=== PATIENT | female | born 1940 | race Caucasian/White ===

== ENCOUNTER 2016-07-05 15:05 | Inpatient (IN) ==
[2016-07-05] MEDS ORDERED: ALUM/MAG/SIMETH/LIDO VISC 1:1 30 ML BOTTLE PO STA (15:48)
[2016-07-05] MEDS ORDERED: ALUM/MAG/SIMETH/LIDO VISC 1:1 30 ML BOTTLE PO ONE (16:04)
[2016-07-05] MEDS ORDERED: ONDANSETRON ODT 4 MG TABLET PO STA (16:10)
[2016-07-05] MEDS ORDERED: ONDANSETRON ODT 4 MG TABLET PO ONE (16:10)
--- NOTE | 2016-07-05 16:21 | XRay Report ---
History: Pain under right ribs Date: 07/05/2016 Study: Chest x-ray PA and lateral Comparison exam: October 14, 2015 chest x-ray The cardiac silhouette is not enlarged. The mediastinal contours are stable. The pulmonary vasculature is not engorged. Neurostimulator leads overlie the mid thoracic spine level. There is no pleural effusion. There is a prominent cardiac fat pad. There are some scattered emphysematous changes. There is no acute pulmonary infiltrate. Surgical clips overlie either lung apex. There is suspected osteopenia and thoracic spondylosis. Impression: No acute cardiopulmonary process. Emphysematous changes within the lungs PROCEDURE INTERPRETED AT [facility] DEPARTMENT OF RADIOLOGY Final Report Signed by: Dr. Yuli Dinh
[2016-07-05 16:22] LABS: Basophils % 0.2 % (0.0-0.8); Eosinophils # 0.1 10*3/uL (0.0-0.87); Eosinophils % 1.1 % (0.00-10.9); Hematocrit 41.9 VOL% (35.7-47.0); Hemoglobin 13.6 GM/DL (12.0-16.0); Immature Granulocytes % 1.1 %; Immature Granulocytes Absolute 0.13 #; Lymphocytes # 2.5 10*3/uL (1.4-4.0); Mean Corpuscular HGB Conc 32.5 GM/DL (32-36); Mean Corpuscular Hemoglobin 30 PG (27-34); Mean Corpuscular Volume 92.1 FL (87-102); Mean Platelet Volume 10.3 FL (9.6-12.0); Monocytes % 8.4 % (1.7-12.7); Neutrophils # 8.2 10*3/uL (1.4-7.4); Neutrophils % 68.2 % (38.7-73.9); Platelet Count 200 T/CUMM (130-400); Red Blood Count 4.55 MC/CUMM (3.8-5.5); Red Cell Distribution Width 13.6 % (9.3-17.3)
--- NOTE | 2016-07-05 16:24 | XRay Report ---
Exam: XR abdomen 2V Date: 07/05/2016 3:46 PM Comparison: 03/02/2012 Indication: Right upper quadrant pain Technique:[Supine and erect abdomen] Findings: Nonobstructed bowel gas pattern with no free air. Interval cholecystectomy. Stable SCS with degenerative changes. Minimal dextroscoliosis of the spine. Impression: Nonobstructed bowel gas pattern with no free air. SCS with interval cholecystectomy. PROCEDURE INTERPRETED AT [facility] DEPARTMENT OF RADIOLOGY Final Report Signed by: Dr. Augusta Nelson
[2016-07-05 16:27] LABS: Apearance,Urine CLOUDY (Clear); Bacteria,Urine Many /HPF (Few); Bilirubin,Urine Negative (Negative); Blood, Urine Negative (Negative); Glucose,Urine (UA) Negative (Negative); Ketones,Urine Negative (Negative); Mucus,Urine Many /LPF (Occasional); Nitrite,Urine Negative (Negative); Protein,Urine Negative; RBC,Urine 35 /HPF (0-4); Squamous Epithelial Cell,Urine Few /HPF (0-10); Urine Color Yellow (Yellow); Urine Specific Gravity 1.026 (1.001-1.035); Urine Urobilinogen < 2.0 EU/DL (0.2-1.0); WBC,Urine 13 /HPF (0-6)
[2016-07-05] MEDS ORDERED: cefTRIAXone 1,000 MG in SODIUM CHLORIDE 0.9% 100 ML IV STA (16:31)
[2016-07-05] MEDS ORDERED: KETOROLAC 30 MG/1 ML VIAL IV STA (16:31)
[2016-07-05] MEDS ORDERED: cefTRIAXone 1,000 MG VIAL ONE (16:48)
[2016-07-05] MEDS ORDERED: SODIUM CHLORIDE 0.9% 100 ML IV ONE (16:48)
[2016-07-05] MEDS ORDERED: KETOROLAC 30 MG/1 ML VIAL ONE (16:48)
[2016-07-05 16:50] LABS: Albumin 3.5 G/DL (3.4-5.0); Bilirubin,Total 0.5 MG/DL (0.2-1.0); Calcium 8.9 MG/DL (8.5-10.1); Osmolality,Calculated 279.7 MOS/KG (273-304); Potassium 3.9 MMOL/L (3.5-5.1); Total Protein 6.7 G/DL (6.4-8.3)
[2016-07-05] MEDS ORDERED: SODIUM CHLORIDE 0.9% 500 ML IV STA (17:06)
[2016-07-05] MEDS ORDERED: ONDANSETRON 4 MG/2 ML VIAL IV STA (17:56)
[2016-07-05] MEDS ORDERED: MORPHINE 2 MG/1 ML SYRINGE IV STA (17:56)
[2016-07-05] MEDS ORDERED: MORPHINE 2 MG/1 ML SYRINGE ONE (18:02)
[2016-07-05] MEDS ORDERED: ONDANSETRON 4 MG/2 ML VIAL ONE (18:02)
--- NOTE | 2016-07-05 18:17 | Ultrasound Report ---
History: Right flank pain Date: 07/05/2016 Study: Renal ultrasound kidneys only Comparison exam: Abdominal CT April 16, 2016 Real-time ultrasound images are captured and archived. There is no hydronephrosis or abnormal perinephric fluid. The left kidney measures 10.4 x 5.0 x 3.8 cm; the right kidney measures 9.9 x 3.8 x 4.0 cm. There is no solid renal mass. There is a 2.5 cm simple cyst in the mid right kidney. Impression: Benign simple cyst mid right kidney. Otherwise negative exam PROCEDURE INTERPRETED AT [facility] DEPARTMENT OF RADIOLOGY Final Report Signed by: Dr. Yuli Dinh
--- NOTE | 2016-07-05 18:21 | Emergency Department Note ---
Fadumo Yusuf Hilary, am scribing for, and in the presence of, Luis Angel Dong M.D. 16:03. Letitia Yusuf Howard T, M.D., personally performed the services described in this documentation, ascribed by Claire Thorne in my presence, and it is both accurate and complete [id number] . Arrival - Arrival Chief Complaint: Abdominal / Flank Pain Stated Complaint: sharp pain under right rib ED Nursing Triage Note: SHARP PAIN RUQ THAT RADIATES TO HER BACK, ONSET THIS AM , PRIOR CHOLECYSTECTOMY Mode of Arrival: Ambulatory Limitations: No Limitations Source: Patient, RN Notes Reviewed Time Seen by Provider: 07/05/16 15:45 - History of Present Illness HPI Narrative: Pt is a 76 y/o female presenting to the NUC with abdominal pain which radiates to her back which onset this morning. Pt reports eating doesn't make the pain worse or better. Pt confirms right sided flank tenderness and RUQ tenderness but she denies, N/V/D, constipation, dysuria, or blood in urine or stool. Pt had a Cholecystectomy four years ago and states the pain is the same as then and reports she had this same pain in March. Pt has a PMHx of Hiatal hernia, esophageal stricture; redundant colon, GERD, and Diverticulitis. Pt has a PSHx of a Cholecystectomy and Appendectomy. No other complaints or problems stated in the NUC. Onset (ago): hour(s) Consistency: constant Allergies/Adverse Reactions: Allergies Allergy/AdvReac Type Severity Reaction Status Date / Time Penicillins Allergy Intermediate RASH Verified 07/05/16 15:26 Home Medications: Home Medications Medication Instructions Recorded Confirmed Type Estradiol Tab [Estrace Tab] 2 mg PO BEDTIME 10/17/14 04/19/16 History Aspirin [Ecotrin] 81 mg PO BEDTIME 10/18/14 04/19/16 History Cholecalciferol (Vitamin D3) 1,000 unit PO BEDTIME 10/26/15 04/19/16 History [Vitamin D3] HYDROcodone/ACETAMIN 10-325 [[place] 1 tablet PO TID 10/26/15 04/19/16 History 10-325] Lisinopril/Hydrochlorothiazide 1 each PO BEDTIME 10/26/15 04/19/16 History [Lisinopril-Hctz 10-12.5 mg Tab] Metoprolol Tartrate 25 mg PO BEDTIME 10/26/15 04/19/16 History Magnesium Oxide [Magnesium] 400 mg PO BEDTIME 03/07/16 04/19/16 History Omeprazole [Prilosec] 20 mg PO BEDTIME 03/07/16 04/18/16 History Dicyclomine Cap/Tab [Bentyl 10 mg PO QID 04/17/16 04/17/16 History Cap/Tab] HYDROcodone/ACETAMIN 5-325 [[place] 1 tablet PO Q6H PRN #10 tablet 07/05/16 Rx 5-325] Ondansetron Tab [Zofran Tab] 4 mg PO Q6H #20 tablet 07/05/16 Rx cephALEXin [Keflex] 500 mg PO Q12HR #14 capsule 07/05/16 Rx Review of System - Review of System 12 point system: reviewed and no additional remarkable complaints except as stated - Review of System Constitutional: Absent: fever Respiratory: Absent: respiratory distress Gastrointestinal: Present: abdominal pain. Absent: nausea, vomiting, diarrhea, constipation Genitourinary female: Absent: dysuria, hematuria Musculoskeletal: Present: back pain (Right flank ) Medical,Surgical,& Family Hx - Medical History Cardio: History of: Hypertension No history of: Aneurysm, [place] Neurology: History of: Migraine (No Longer has), Vertigo No history of: Seizures HEENT: History of: Eye Problem (Wears glasses; poor vision; Cataracts), Dental Problems (Upper Plate) No history of: Ear Problem Respiratory: History of: Bronchitis, Pneumonia (A long time ago; Hx Pneum Vac), Respiratory Problems (Pulmonary edema; No Flu Vac 2015) Gastrointestinal: History of: Diverticulitis/ Diverticulosis, GERD, Hemorrhoids , GI Problems (hiatal hernia, esophageal stricture; redundant colon) Musculoskeletal: History of: Back/Neck Problems (Chronic back pain - epideral steroid injections; Dr. Patel), Herniated Disk, Musculoskeletal Problems ( Arthritis) Hematology: No history of: Anemia, Blood Transfusion Reaction Other: No history of: Anesthesia Reactions, Cancer - Surgical History Cardiac Surgeries: Sugical HX of: Cardiac Catheterization (10 years - Dr. Elmore - Last visit 10/24/2015) HEENT Surgeries: Surgical HX of: Tonsilectomy & Adenoidectomy (Tonsils) Patient denies: Eye Surgery (03/12/[address] Shields; 04/09/16 Sched for Rt Cataract) Abdominal Surgeries: Surgical HX of: Abdominal Surgery, Appendectomy, Cholecystectomy, Colonoscopy, EGD Reproductive Surgeries: Surgical HX of;: Breast Surgery (LEFT lumpectomy), Gynecologic Surgery, Hysterectomy Patient denies;: Genitourinary Surgery Orthopedic Surgeries: Surgical HX of;: Orthopedic Surgery (Rt CTR; Rt RCR) - Family History Family History: Reports;: Family Heart Disease (Brothers x2;), Family Hypertension (Brothers x2; Sister x6; Mother; Father), Family Stroke (Mother, Father) Denies;: Family Cancer - Social History Smoking Status: Never smoker Exam Vital Signs: Vital Signs Temperature 97 F L 07/05/16 15:23 Pulse Rate 69 07/05/16 17:04 Respiratory Rate 18 07/05/16 17:04 Blood Pressure 185/73 07/05/16 17:04 O2 Sat by Pulse Oximetry 97 07/05/16 17:04 - General General appearance: alert, in no apparent distress - Head Head exam: Present: atraumatic, normocephalic - Eye Eye exam: Present: normal appearance, PERRL, EOMI - ENT ENT exam: Present: mucous membranes moist, TM's normal bilaterally. Absent: mucous membranes dry - Neck Neck exam: Present: full ROM, trachea midline. Absent: tenderness - Chest Chest inspection: Present: symmetric chest wall rise. Absent: tenderness - Respiratory Respiratory exam: Present: normal lung sounds bilaterally. Absent: respiratory distress - Cardiovascular Cardiovascular exam: Present: regular rate, normal rhythm, normal heart sounds. Absent: murmur, rubs, gallop - Abdominal Exam Abdominal exam: Present: soft, tenderness (Mild to moderate RUQ tenderness), normal bowel sounds. Absent: distention - Extremities Exam Extremities exam: Present: full ROM. Absent: tenderness - Back Exam Back exam: Present: full ROM. Absent: tenderness - Neurological Exam Neurological exam: Present: alert, oriented X3, CN II-XII intact. Absent: motor sensory deficit - Psychiatric Psychiatric exam: Present: normal affect, normal mood - Skin Skin exam: Present: warm, dry, intact, normal color. Absent: rash Course Course Narrative: Medical decision making: Patient symptoms are consistent with flank pain and evaluation suggests urinary tract infection without evidence of stone or pyelonephritis, she appears stable at this time and is comfortable going home on oral medicines however verbalizes understanding that if her symptoms worsen or if she cannot keep oral medicines down she needs to return for reevaluation. Results - Labs CBC & BMP: 07/05/16 16:12 07/05/16 16:12 Lab Results: I have reviewed the patients labs Labs: Laboratory Tests 07/05/16 07/05/16 16:12 16:12 WBC 12.0 RBC 4.55 Hgb 13.6 Hct 41.9 Lymph % (Auto) 21.0 L Neut # (Auto) 8.2 H [place] # (Auto) 1.0 H Urine Urobilinogen < 2.0 H Urine Leukocytes Large H Laboratory Tests 07/05/16 16:12 Creatinine 1.30 H Glucose 146 H Albumin/Globulin Ratio 1.0 L - Diagnostic Findings Procedure: Abdominal x-ray: report reviewed by me (Nonobstructed bowel gas pattern with no free air. SCS with intervl cholecystectomy), Chest x-ray: report reviewed by me (No acute cardiopulmonary process. Emphysematous changes within the lungs), Ultrasound: report reviewed by me (R renal cyst, no other acute findings ) Disposition Clinical Impression: UTI (urinary tract infection), Right flank pain Case discussed with: patient Disposition: Disch To Home/Self Care Condition: Stable Instructions: Urinary Tract Infection in Women (ED), Flank Pain (ED) Additional Instructions: Return for worsening symptoms or if you cannot keep medicines down. Otherwise follow-up with your primary care next week for reevaluation, repeat urinalysis, and to discuss right renal cyst seen on ultrasound. Prescriptions: HYDROcodone/ACETAMIN 5-325 [[place] 5-325] 1 tablet PO Q6H PRN #10 tablet PRN Reason: Pain Ondansetron Tab [Zofran Tab] 4 mg PO Q6H #20 tablet cephALEXin [Keflex] 500 mg PO Q12HR #14 capsule New Prescriptions: Rx's Medication Instructions Recorded HYDROcodone/ACETAMIN 5-325 [[place] 1 tablet PO Q6H PRN #10 tablet 07/05/16 5-325] Ondansetron Tab [Zofran Tab] 4 mg PO Q6H #20 tablet 07/05/16 cephALEXin [Keflex] 500 mg PO Q12HR #14 capsule 07/05/16 Time of Disposition: 18:06
--- NOTE | 2016-07-05 19:31 | Hospitalist History & Physical ---
Assessment and Plan (1) UTI (urinary tract infection) Status: Acute Assessment and plan: The patient has pyuria and symptoms of right flank pain consistent with urinary tract infection. The patient has been given Rocephin in the emergency room and will continue this with a daily dose. The patient will be started on Levaquin tonight and a daily dose will be given starting tomorrow. The patient will stay in the hospital for hydration and when fevers improved and the patient is tolerating oral medications she will be ready for discharge home and follow-up as outpatient. Current Visit: Yes Qualifiers: Urinary tract infection type: acute cystitis Hematuria presence: without hematuria Qualified Code(s): N30.00 - Acute cystitis without hematuria (2) Hypertension Status: Chronic Current Visit: Yes Qualifiers: Hypertension type: essential hypertension Qualified Code(s): I10 - Essential (primary) hypertension (3) Right flank pain Status: Acute Current Visit: Yes History of Present Illness Chief complaint: Right flank pain History of present illness: Ms. Pizarro is a 76 year old female who presents to the emergency room with right flank pain. The pain is mild to moderate, continuous, and worsening. The pain is associated with fever and diaphoresis. The patient's symptoms are similar to those which she had in March 2016 when she had urinary tract infection and urine culture revealed enterococcus. The patient has been at home in her usual state of health she began having mild diaphoresis several days ago this was followed by right flank pain. Her symptoms have not been associated with dysuria or hematuria or hematochezia. The patient denies palpitations or angina. Home Medications Medication Instructions Recorded Confirmed Type Estradiol Tab [Estrace Tab] 2 mg PO BEDTIME 10/17/14 04/19/16 History Aspirin [Ecotrin] 81 mg PO BEDTIME 10/18/14 04/19/16 History Cholecalciferol (Vitamin D3) 1,000 unit PO BEDTIME 10/26/15 04/19/16 History [Vitamin D3] HYDROcodone/ACETAMIN 10-325 [[place] 1 tablet PO TID 10/26/15 04/19/16 History 10-325] Lisinopril/Hydrochlorothiazide 1 each PO BEDTIME 10/26/15 04/19/16 History [Lisinopril-Hctz 10-12.5 mg Tab] Metoprolol Tartrate 25 mg PO BEDTIME 10/26/15 04/19/16 History Magnesium Oxide [Magnesium] 400 mg PO BEDTIME 03/07/16 04/19/16 History Omeprazole [Prilosec] 20 mg PO BEDTIME 03/07/16 04/18/16 History Dicyclomine Cap/Tab [Bentyl 10 mg PO QID 04/17/16 04/17/16 History Cap/Tab] HYDROcodone/ACETAMIN 5-325 [[place] 1 tablet PO Q6H PRN #10 tablet 07/05/16 Rx 5-325] Ondansetron Tab [Zofran Tab] 4 mg PO Q6H #20 tablet 07/05/16 Rx cephALEXin [Keflex] 500 mg PO Q12HR #14 capsule 07/05/16 Rx Allergies Allergy/AdvReac Type Severity Reaction Status Date / Time Penicillins Allergy Intermediate RASH Verified 07/05/16 15:26 Medical,Surgical,& Family Hx - Medical History Cardio: History of: Hypertension No history of: Aneurysm, [place] Neurology: History of: Migraine (No Longer has), Vertigo No history of: Seizures HEENT: History of: Eye Problem (Wears glasses; poor vision; Cataracts), Dental Problems (Upper Plate) No history of: Ear Problem Respiratory: History of: Bronchitis, Pneumonia (A long time ago; Hx Pneum Vac), Respiratory Problems (Pulmonary edema; No Flu Vac 2015) Gastrointestinal: History of: Diverticulitis/ Diverticulosis, GERD, Hemorrhoids , GI Problems (hiatal hernia, esophageal stricture; redundant colon) Musculoskeletal: History of: Back/Neck Problems (Chronic back pain - epideral steroid injections; Dr. Patel), Herniated Disk, Musculoskeletal Problems ( Arthritis) Hematology: No history of: Anemia, Blood Transfusion Reaction Other: No history of: Anesthesia Reactions, Cancer - Surgical History Cardiac Surgeries: Sugical HX of: Cardiac Catheterization (10 years - Dr. Elmore - Last visit 10/24/2015) HEENT Surgeries: Surgical HX of: Tonsilectomy & Adenoidectomy (Tonsils) Patient denies: Eye Surgery (03/12/[address] Shields; 04/09/16 Sched for Rt Cataract) Abdominal Surgeries: Surgical HX of: Abdominal Surgery, Appendectomy, Cholecystectomy, Colonoscopy, EGD Reproductive Surgeries: Surgical HX of;: Breast Surgery (LEFT lumpectomy), Gynecologic Surgery, Hysterectomy Patient denies;: Genitourinary Surgery Orthopedic Surgeries: Surgical HX of;: Orthopedic Surgery (Rt CTR; Rt RCR) - Family History Family History: Reports;: Family Heart Disease (Brothers x2;), Family Hypertension (Brothers x2; Sister x6; Mother; Father), Family Stroke (Mother, Father) Denies;: Family Cancer - Social History Smoking Status: Never smoker Marital Status: Lives With:: Alone Functional capacity: independent ambulation 12 point system: reviewed and no additional remarkable complaints except as stated Exam - Constitutional Exam: Constitutional System: Mild distress. No tremulousness. Patient refers to right flank as source of pain Head: Normocephalic, atraumatic. Ears, Nose and Throat System: No evidence of Otitis or Mastoiditis. No epistaxis or discharge Eyes System: Pupils equal, round, and reactive. Extraocular muscles intact. Neck: Supple, without adenopathy, No jugular venous distention. No thyromegaly , neck mass, or prior surgery apparent. Respiratory System: Chest clear to auscultation. Cardiovascular System: Heart with regular rate and rhythm. No murmur. GI System: Abdomen soft, nontender. Normo active bowel sounds present. Musculoskeletal System: limbs with no pedal edema. Full distal pulses. There is right CVA tenderness Neurological System: No discernable sensory deficit. No aphasia Psychiatric System: Conversation is rational Results - Labs CBC & BMP: 07/05/16 16:12 07/05/16 16:12 Lab Results: I have reviewed the past 24 hour labs Labs: Urinalysis reveals pyuria
[2016-07-05] MEDS ORDERED: ACETAMINOPHEN 325 MG TABLET PO PRN (19:55)
[2016-07-05] MEDS ORDERED: ONDANSETRON 4 MG/2 ML VIAL IV PRN (19:55)
[2016-07-05] MEDS ORDERED: PNEUMOCOCCAL VACCINE (13 VALENT) 0.5 ML SYRINGE IM ONE (20:31)
[2016-07-05] MEDS: ESTRADIOL 1 MG TABLET PO SCH (21:05)
[2016-07-05] MEDS: LISINOPRIL/HCTZ 10-12.5 MG TABLET PO SCH (21:06)
[2016-07-05] MEDS: SODIUM CHLORIDE 0.9% 1,000 ML IV SCH (21:06)
[2016-07-05] MEDS: ASPIRIN EC 81 MG TABLET PO SCH (21:06)
[2016-07-05] MEDS: DICYCLOMINE 10 MG CAPSULE PO SCH (21:06)
[2016-07-05] MEDS: ENOXAPARIN 40 MG/0.4 ML SYRINGE SUBCUT SCH (21:07)
[2016-07-05] MEDS: LEVOFLOXACIN INJ 500 MG in PREMIX 1 EACH IV SCH (21:07)
[2016-07-05] MEDS: METOPROLOL TARTRATE 25 MG TABLET PO SCH (21:07)
[2016-07-05] MEDS: CHOLECALCIFEROL 1,000 UNIT TABLET PO SCH (21:09)
[2016-07-06 04:23] LABS: Basophils % 0.1 % (0.0-0.8); Eosinophils # 0.1 10*3/uL (0.0-0.87); Eosinophils % 1.5 % (0.00-10.9); Hematocrit 34.7 VOL% (35.7-47.0); Hemoglobin 11.2 GM/DL (12.0-16.0); Immature Granulocytes % 0.7 %; Immature Granulocytes Absolute 0.05 #; Lymphocytes # 1.7 10*3/uL (1.4-4.0); Lymphocytes % 22.3 % (21.3-54.2); Mean Corpuscular HGB Conc 32.3 GM/DL (32-36); Mean Corpuscular Hemoglobin 30 PG (27-34); Mean Platelet Volume 11.1 FL (9.6-12.0); Monocytes # 0.7 10*3/uL (0.11-0.8); Monocytes % 9.3 % (1.7-12.7); Neutrophils % 66.1 % (38.7-73.9); Platelet Count 151 T/CUMM (130-400); Red Blood Count 3.77 MC/CUMM (3.8-5.5); Red Cell Distribution Width 13.5 % (9.3-17.3); White Blood Count 7.5 T/CUMM (4-12)
[2016-07-06 04:52] LABS: Calcium 8.1 MG/DL (8.5-10.1); Osmolality,Calculated 282.4 MOS/KG (273-304); Potassium 4.1 MMOL/L (3.5-5.1)
[2016-07-06] MEDS: SODIUM CHLORIDE 0.9% 1,000 ML IV SCH ×3 (06:29→21:52)
[2016-07-06] MEDS: MORPHINE 2 MG/1 ML SYRINGE IV PRN ×3 (06:54→12:18)
[2016-07-06] MEDS: PANTOPRAZOLE 40 MG TABLET PO SCH (08:16)
[2016-07-06] MEDS: DICYCLOMINE 10 MG CAPSULE PO SCH ×4 (08:16→21:53)
[2016-07-06] MEDS: cefTRIAXone 1,000 MG in SODIUM CHLORIDE 0.9% 100 ML IV SCH (08:17)
--- NOTE | 2016-07-06 15:54 | CT Report ---
History: Right flank pain. Nephrolithiasis suspected. Renal cysts by ultrasound Date: 07/06/2016 Study: CT abdomen without IV contrast Comparison exam: CT abdomen with IV contrast April 16, 2016 Technique: Spiral CT sections were obtained from the lung bases to the iliac crests without contrast. This CT exam was performed using one or more the following dose reduction techniques: Automated exposure control, adjustment of the MA and/or KV according to patient size, or use of iterative reconstruction technique. There is no marcus pneumonia in the partially visualized lung bases. There is no gross pleural or pericardial effusion. There is no evidence of pneumoperitoneum. There is no marcus bowel obstruction where seen. The gallbladder is surgically absent. The liver, spleen, pancreas, bile ducts, and adrenal glands are normal in appearance. There is a 2.4 cm water density cyst in the mid right kidney. There is a rounded exophytic water density cyst at the lower pole of the left kidney at 14 mm diameter as on the comparison CT. There is no hydronephrosis. There are at least 2 punctate calcific densities in the right renal sinus which could represent 1 mm calculi. There is no aortic aneurysm. There is no lymphadenopathy by short axis diameter criteria. A neurostimulator device is positioned with its power pack in the soft tissues of the dorsal right flank. There is degenerative disc disease of the lumbar spine. Impression: Particulate nonobstructing renal stones on the right. No hydronephrosis. Renal cysts. Previous cholecystectomy PROCEDURE INTERPRETED AT [facility] DEPARTMENT OF RADIOLOGY Final Report Signed by: Dr. Yuli Dinh
[2016-07-06] MEDS: LEVOFLOXACIN INJ 500 MG in PREMIX 1 EACH IV SCH (21:52)
[2016-07-06] MEDS: ASPIRIN EC 81 MG TABLET PO SCH (21:53)
[2016-07-06] MEDS: LISINOPRIL/HCTZ 10-12.5 MG TABLET PO SCH (21:53)
[2016-07-06] MEDS: ENOXAPARIN 40 MG/0.4 ML SYRINGE SUBCUT SCH (21:53)
[2016-07-06] MEDS: ESTRADIOL 1 MG TABLET PO SCH (21:53)
[2016-07-06] MEDS: CHOLECALCIFEROL 1,000 UNIT TABLET PO SCH (21:54)
[2016-07-06] MEDS: METOPROLOL TARTRATE 25 MG TABLET PO SCH (21:54)
[2016-07-07] MEDS: MORPHINE 2 MG/1 ML SYRINGE IV PRN ×4 (00:45→22:20)
[2016-07-07] MEDS: MELATONIN 3 MG TABLET PO PRN (00:46)
[2016-07-07] MEDS: SODIUM CHLORIDE 0.9% 1,000 ML IV SCH ×3 (07:24→23:40)
[2016-07-07] MEDS: PANTOPRAZOLE 40 MG TABLET PO SCH (08:16)
[2016-07-07] MEDS: DICYCLOMINE 10 MG CAPSULE PO SCH ×4 (08:16→20:49)
[2016-07-07] MEDS: cefTRIAXone 1,000 MG in SODIUM CHLORIDE 0.9% 100 ML IV SCH (08:17)
--- NOTE | 2016-07-07 11:20 | Hospitalist Progress Note ---
<Daniel Mckeon - Last Filed: 07/07/16 11:03> Assessment and Plan (1) Renal stones Status: Acute Assessment and plan: CT abdomen and pelvis on yesterday revealed non-obstructive renal stones on the right; no hydronephrosis, and renal cysts. Urology consult requested. Current Visit: Yes (2) Right flank pain Status: Acute Current Visit: Yes (3) UTI (urinary tract infection) Status: Acute Assessment and plan: Continue IV ABt as ordered; continue hydration. Current Visit: Yes Qualifiers: Urinary tract infection type: acute cystitis Hematuria presence: without hematuria Qualified Code(s): N30.00 - Acute cystitis without hematuria (4) Hypertension Status: Chronic Assessment and plan: Will manage and adjust as needed. Current Visit: Yes Qualifiers: Hypertension type: essential hypertension Qualified Code(s): I10 - Essential (primary) hypertension Hospitalist: Subjective Interval history: Patient seen and examined. No significant overnight events. CT abdomen and pelvis on yesterday revealed non-obstructive renal stones on the right; no hydronephrosis, and renal cysts. Urology consult requested. Exam - Constitutional Vitals: Period Temp Pulse Resp BP Sys/[place] Pulse Ox Last 24 Hr 97.1 F-98.1 F 62-71 12-20 137-160/56-76 94-98 General appearance: normal weight, no acute distress - Head Head exam: Present: normal inspection, normocephalic, atraumatic - Eye Eye exam: Present: EOMI. Absent: conjunctival injection Pupils: Present: TAM, normal accommodation - ENT ENT exam: Present: normal exam, normal external ear exam, normal oropharynx - Neck Neck exam: Absent: lymphadenopathy, meningismus, tenderness, thyromegaly - Respiratory Respiratory exam: Present: clear to auscultation bilaterally. Absent: rales, rhonchi, stridor, wheezes - Cardiovascular Cardiovascular exam: Present: regular rate and rhythm. Absent: carotid bruit, diastolic murmur, gallop, JVD, rubs, systolic murmur - GI/Abdominal GI/Abdominal exam: Present: normal bowel sounds, tenderness (flank pain r side) - Extremities Exam Extremities exam: Present: normal inspection, normal capillary refill, full ROM. Absent: edema - Back Exam Back exam: Present: normal inspection - Neurological Exam Neurological exam: Present: alert, oriented X3, CN II-XII intact - Psychiatric Psychiatric exam: Present: normal affect, normal mood - Skin Skin exam: Present: normal color, warm, dry Results - Labs CBC & BMP: 07/06/16 02:35 07/06/16 02:35 Lab Results: I have reviewed the past 24 hour labs Quality Measures - Stroke Symptom Onset Unknown: No Specialty Discharge - Follow Up or Referrals <Ulises Farias - Last Filed: 07/07/16 13:19> Assessment and Plan (1) UTI (urinary tract infection) Status: Acute Current Visit: Yes Qualifiers: Urinary tract infection type: acute cystitis Hematuria presence: without hematuria Qualified Code(s): N30.00 - Acute cystitis without hematuria (2) Right flank pain Status: Acute Current Visit: Yes (3) Hypertension Status: Chronic Current Visit: Yes Qualifiers: Hypertension type: essential hypertension Qualified Code(s): I10 - Essential (primary) hypertension Exam - Constitutional Vitals: Period Temp Pulse Resp BP Sys/[place] Pulse Ox Last 24 Hr 97.1 F-98.1 F 62-71 14-20 137-160/56-76 94-98 Results - Labs CBC & BMP: 07/06/16 02:35 07/06/16 02:35
--- NOTE | 2016-07-07 17:41 | Consultation ---
Ms. Pizarro is 76 years old. She was admitted two days ago because of severe right flank pain. Sujit resendez was found to have stones in her right kidney, but no obstructive uropathy. She was found to have a urinary tract infection and culture is pending. She had a similar episode in March and was greg miguelangel with antibiotics. She has no other history of urinary tract infection problems. No other histo ry of stone problems. The patient is still hurting in her right flank area. Pain radiate anterior to posterior in the right upper quadrant into the right flank. She has not had further migration pa in. The study could not be reviewed by me, but apparently does show a couple of stones and mild hydr onephrosis. The patient is feeling a little better, but still hurting. Final culture is pending. I think problem most likely suggest pyelonephritis even though she is not running any significant fe lilo. Low-grade temperature elevation only. She needs to be treated with appropriate antimicrobials and then placed on suppression with something like 50 mg Macrodantin daily or 100 mg trimethoprim d aily and I will keep her on that for six months. If she has any other problems, please consult Dr. Hernández or Dr. Gunn for further care. Thank you for this consultation.
[2016-07-07] MEDS: ESTRADIOL 1 MG TABLET PO SCH (20:49)
[2016-07-07] MEDS: ASPIRIN EC 81 MG TABLET PO SCH (20:49)
[2016-07-07] MEDS: ENOXAPARIN 40 MG/0.4 ML SYRINGE SUBCUT SCH (20:49)
[2016-07-07] MEDS: CHOLECALCIFEROL 1,000 UNIT TABLET PO SCH (20:49)
[2016-07-07] MEDS: LISINOPRIL/HCTZ 10-12.5 MG TABLET PO SCH (20:50)
[2016-07-07] MEDS: METOPROLOL TARTRATE 25 MG TABLET PO SCH (20:50)
[2016-07-08] MEDS: MELATONIN 3 MG TABLET PO PRN ×2 (00:05→20:50)
[2016-07-08] MEDS: MORPHINE 2 MG/1 ML SYRINGE IV PRN ×4 (04:56→21:35)
[2016-07-08 06:20] LABS: Basophils % 0.2 % (0.0-0.8); Eosinophils # 0.1 10*3/uL (0.0-0.87); Eosinophils % 1.9 % (0.00-10.9); Hematocrit 35.3 VOL% (35.7-47.0); Immature Granulocytes % 0.5 %; Immature Granulocytes Absolute 0.03 #; Lymphocytes # 1.6 10*3/uL (1.4-4.0); Lymphocytes % 28.2 % (21.3-54.2); Mean Corpuscular HGB Conc 31.2 GM/DL (32-36); Mean Corpuscular Hemoglobin 30 PG (27-34); Mean Corpuscular Volume 95.1 FL (87-102); Mean Platelet Volume 11.1 FL (9.6-12.0); Monocytes # 0.5 10*3/uL (0.11-0.8); Monocytes % 7.9 % (1.7-12.7); Neutrophils # 3.5 10*3/uL (1.4-7.4); Neutrophils % 61.3 % (38.7-73.9); Platelet Count 113 T/CUMM (130-400); Red Blood Count 3.71 MC/CUMM (3.8-5.5); Red Cell Distribution Width 13.8 % (9.3-17.3); White Blood Count 5.7 T/CUMM (4-12)
[2016-07-08 06:53] LABS: Albumin 2.6 G/DL (3.4-5.0); Bilirubin,Total 0.8 MG/DL (0.2-1.0); Calcium 7.7 MG/DL (8.5-10.1); Magnesium 1.6 MG/DL (1.8-2.4); Osmolality,Calculated 287.8 MOS/KG (273-304); Phosphorous 2.7 MG/DL (2.5-4.9); Total Protein 5.1 G/DL (6.4-8.3)
[2016-07-08] MEDS: SODIUM CHLORIDE 0.9% 1,000 ML IV SCH ×2 (09:33→15:57)
[2016-07-08] MEDS: DICYCLOMINE 10 MG CAPSULE PO SCH ×4 (09:35→20:50)
[2016-07-08] MEDS: PANTOPRAZOLE 40 MG TABLET PO SCH (09:35)
--- NOTE | 2016-07-08 13:21 | Ultrasound Report ---
Referring Physician: Ruth Baker MD Exam: US liver Date: July 08, 2016 Reason: Elevated liver function test Comparison: CT abdomen without contrast July 06, 2016, renal ultrasound July 05, 2016, CT abdomen and pelvis July 08, 2016 Technique: Grayscale ultrasound images of the right abdomen were obtained. Ultrasound images were captured and stored. Findings: The liver measures 14.6 cm in length. No suspicious hepatic lesion is identified. The patient is status post cholecystectomy. The common bile duct is mildly prominent, measuring 0.7 cm in diameter. This is stable and may be related to the cholecystectomy status. However, please correlate with bilirubin levels. The visualized pancreas is unremarkable. The right kidney measures 8.7 x 4.5 x 4.1 cm. No right hydronephrosis is present. There is a 2.7 x 1.7 x 1.5 cm exophytic cyst at the mid right kidney. The visualized IVC appears patent, no ascites is seen. Impression: 1. No suspicious hepatic lesion is identified. 2. The common bile duct is mildly prominent but stable, measuring 0.7 cm in diameter. This may be related to the cholecystectomy status, but please correlate with bilirubin levels. 3. Right renal cyst. PROCEDURE INTERPRETED AT [facility] DEPARTMENT OF RADIOLOGY Final Report Signed by: Dr. Kimberly Hartmann
--- NOTE | 2016-07-08 18:25 | Hospitalist Progress Note ---
Assessment and Plan (1) Elevated liver function tests Status: Acute Assessment and plan: Unclear etiology. liver U/S unremarkable. Will F/U repeat tests in the morning and obtain hepatitis screening. Will also place a c/s to GI as well. Current Visit: Yes (2) UTI (urinary tract infection) Status: Acute Assessment and plan: MRSA isolated on Ucx. Given the presence of a non-obstructing stone, patient will need prolonged abx until stone passage and/or removal occurs. Will start Bactrim (bacteriacidal) but would likely benefit from long-term suppression with Doxy (bacteriastatic) as it has less potential side effects. Current Visit: Yes Qualifiers: Urinary tract infection type: acute cystitis Hematuria presence: without hematuria Qualified Code(s): N30.00 - Acute cystitis without hematuria (3) Right flank pain Status: Acute Assessment and plan: Improved but still present. Pain meds prn. Current Visit: Yes (4) Hypertension Status: Chronic Current Visit: Yes Qualifiers: Hypertension type: essential hypertension Qualified Code(s): I10 - Essential (primary) hypertension (5) Renal stones Status: Acute Current Visit: Yes Hospitalist: Subjective Interval history: Patient seen and evaluted and continues to have RUQ pain that radiates around to the right shoulder blade. Intermittent sharp pain. No N/V. Soft stools. Discussed with Ms. Pizarro elevated liver test and potential etiologies. Liver u/s unremarkable. Of note, she's had a cholecystecomy at some point in the recent past. Currently on IVF's but can d/c with improvement in renal function. Oral intake adequate. Exam - Constitutional Vitals: Period Temp Pulse Resp BP Sys/[place] Pulse Ox Last 24 Hr 96.7 F-98.4 F 60-69 16-20 124-147/55-76 92-98 General appearance: morbidly obese - Head Head exam: Present: normal inspection, normocephalic, atraumatic - Eye Eye exam: Present: EOMI - Neck Neck exam: Present: normal inspection. Absent: lymphadenopathy - Respiratory Respiratory exam: Present: clear to auscultation bilaterally. Absent: rales, rhonchi, wheezes - Cardiovascular Cardiovascular exam: Present: regular rate and rhythm - GI/Abdominal GI/Abdominal exam: Present: normal bowel sounds, tenderness, soft. Absent: distended - Back Exam Back exam: Present: CVA tenderness (R) (mild) - Neurological Exam Neurological exam: Present: alert, oriented X3, CN II-XII intact - Psychiatric Psychiatric exam: Present: normal affect, normal mood - Skin Skin exam: Present: normal color, warm, dry Results - Labs CBC & BMP: 07/08/16 05:28 07/08/16 05:28 Quality Measures - Stroke Symptom Onset Unknown: No Specialty Discharge - Follow Up or Referrals
--- NOTE | 2016-07-08 18:52 | Urology Progress Note ---
Urology - PN: Subj Interval history: 76-year-old white female was admitted the hospital with abdominal pain. The working diagnosis is pyelonephritis but I disagree with that. This patient had a similar episode in March with right abdominal pain that traverses to behind her shoulder blade. She had a workup at that time with no findings. This returns. And to admit labeled as having pyelonephritis but I do not think so. Her white count is normal she has had no fever. She has a positive urine culture but if you critically think about this this urine is contaminated with vaginal contents. SGOT 10 to the fifth colonies of yeast and a small bacterial count which I think is can contaminant. Her examination is not consistent with pyelonephritis. Her intermittent pain is not consistent with pyelonephritis. Her signs and symptoms are not consistent with pyelonephritis. I simply do not believe she has pyelonephritis. I believe her pain and symptoms are related to the GI tract. I would focus my attention there. Exam - Constitutional Vitals: Period Temp Pulse Resp BP Sys/[place] Pulse Ox Last 24 Hr 96.7 F-98.4 F 60-69 16-20 124-147/55-76 92-98 Results - Labs CBC & BMP: 07/08/16 05:28 07/08/16 05:28 Specialty Discharge - Follow Up or Referrals
[2016-07-08 19:43] LABS: Hepatitis B Surface Ag Quant < 0.10 Index; Hepatitis B Surface Ag Result Negative (Negative)
[2016-07-08] MEDS: LISINOPRIL/HCTZ 10-12.5 MG TABLET PO SCH (20:50)
[2016-07-08] MEDS: ASPIRIN EC 81 MG TABLET PO SCH (20:50)
[2016-07-08] MEDS: SULFAMETHOX/TRIMETHOPRIM 800-160 MG TABLET PO SCH (20:50)
[2016-07-08] MEDS: ESTRADIOL 1 MG TABLET PO SCH (20:50)
[2016-07-08] MEDS: CHOLECALCIFEROL 1,000 UNIT TABLET PO SCH (20:51)
[2016-07-08] MEDS: METOPROLOL TARTRATE 25 MG TABLET PO SCH (20:51)
[2016-07-08] MEDS: ENOXAPARIN 40 MG/0.4 ML SYRINGE SUBCUT SCH (20:51)
[2016-07-08 21:07] LABS: Hepatitis A Ab IgM Quant 0.32 Index; Hepatitis A Ab IgM Result Negative (Negative); Hepatitis B Core Ab Result Negative (Negative)
[2016-07-09] MEDS: SODIUM CHLORIDE 0.9% 1,000 ML IV SCH ×3 (00:19→15:38)
[2016-07-09] MEDS: MORPHINE 2 MG/1 ML SYRINGE IV PRN ×4 (02:51→21:51)
[2016-07-09 06:29] LABS: Hepatitis A Ab IgM Quant 0.32 Index; Hepatitis A Ab IgM Result Negative (Negative); Hepatitis B Core IgM Quant 0.17 Index; Hepatitis B Core IgM Result Negative (Negative); Hepatitis B Surface Ag Quant < 0.10 Index; Hepatitis B Surface Ag Result Negative (Negative); Hepatitis C Virus Ab Quant 0.09 Index; Hepatitis C Virus Ab Result Negative (Negative)
[2016-07-09] MEDS ORDERED: FLUCONAZOLE 150 MG TABLET PO ONE (07:58)
[2016-07-09] MEDS: PANTOPRAZOLE 40 MG TABLET PO SCH (08:22)
[2016-07-09] MEDS: SULFAMETHOX/TRIMETHOPRIM 800-160 MG TABLET PO SCH ×2 (08:22→21:12)
[2016-07-09] MEDS: DICYCLOMINE 10 MG CAPSULE PO SCH ×4 (08:22→21:12)
--- NOTE | 2016-07-09 09:30 | Hospitalist Progress Note ---
Hospitalist: Subjective Interval history: No new complaints. No fever. No cp or SOB. right flank pain currently controlled. Tolerating po. +BM. Ambulating around in the room without assistance. Exam - Constitutional Vitals: Period Temp Pulse Resp BP Sys/Gax[place]ola Pulse Ox Last 24 Hr 96.7 F-98.6 F 63-92 16-20 120-153/40-76 92-96 Exam: A and O x 3, NAD, morbidly obese RRR no M CTAB nonlabored Soft, NT, ND, +BS difficult to assess for HSM or masses given body habitus Warm no c/c/e Results - Labs CBC & BMP: 07/08/16 05:28 07/08/16 05:28 - Impressions (1) Elevated liver function tests Status: Acute Assessment and plan: Unclear etiology. possibly related to acetaminophen. liver U/S unremarkable. Viral hepatitis panel pending. GI to see. ? HIDA scan but I wonder if this will be negative given she has no significant symptoms. DC [place] and tylenol. Tramadol trial. Current Visit: Yes (2) UTI (urinary tract infection)/ cystitis Status: Acute Assessment and plan: MRSA isolated on Ucx. Given the presence of a non-obstructing stone, patient will need prolonged abx until stone passage and/or removal occurs. Cont Bactrim (bactericidal) but would likely benefit from long-term suppression with Doxy ( bacteriastatic) as it has less potential side effects. D/W urology (Dr. Allison ). He does not feel this is pyelonephritis. Current Visit: Yes Qualifiers: Urinary tract infection type: acute cystitis Hematuria presence: without hematuria Qualified Code(s): N30.00 - Acute cystitis without hematuria (3) Right flank pain Status: Acute Assessment and plan: Improved but still present. Pain meds prn. GI to see. F/U recs. I wonder if this is referred pain from chronic lumbar radiculopathy. Current Visit: Yes (4) Hypertension Status: Chronic Current Visit: Yes Qualifiers: Hypertension type: essential hypertension Qualified Code(s): I10 - Essential (primary) hypertension - cont current therapy (5) Renal stones Status: Acute Current Visit: Yes -Stones are too small for intervention at this time. D/W Dr. Allison. DVT prophylaxis -Dispo: awaiting liver function to improve and GI recs. Possibly dc in the next day or so. Pt states she may be interested in HH at discharge. Quality Measures - Stroke Symptom Onset Unknown: No Specialty Discharge - Follow Up or Referrals
[2016-07-09 10:05] LABS: Albumin 2.7 G/DL (3.4-5.0); Bilirubin,Direct 0.3 MG/DL (0.0-0.20); Bilirubin,Indirect 0.2 MG/DL (0.0-1.0); Bilirubin,Total 0.5 MG/DL (0.2-1.0); Total Protein 5.1 G/DL (6.4-8.3)
--- NOTE | 2016-07-09 10:29 | Urology Progress Note ---
Urology - PN: Subj Interval history: Patient still has that right upper quadrant pain traversing to underneath her shoulder blade. Her liver enzymes are up. She is on Bactrim for the urinary findings. But I am not convinced she has a UTI. But we will continue the Bactrim. I did order Diflucan for her monilial vaginitis. Also ordered hepatitis profile, amylase and lipase. This just does not appear to be Pyelo and I do not feel her pain is urinary in origin. Exam - Constitutional Vitals: Period Temp Pulse Resp BP Sys/Gax[place]ola Pulse Ox Last 24 Hr 96.7 F-98.6 F 63-92 16-20 120-153/40-76 92-96 Results - Labs CBC & BMP: 07/08/16 05:28 07/08/16 05:28 Specialty Discharge - Follow Up or Referrals
[2016-07-09 10:49] LABS: Albumin 2.7 G/DL (3.4-5.0); Calcium 7.7 MG/DL (8.5-10.1); Magnesium 1.4 MG/DL (1.8-2.4); Phosphorous 2.5 MG/DL (2.5-4.9); Potassium 3.8 MMOL/L (3.5-5.1)
--- NOTE | 2016-07-09 11:25 | Gastrointestinal Consult Note ---
Assessment and Plan (1) Abdominal pain Status: Acute Assessment and plan: 07/09-several day history of right upper quadrant abdominal pain radiating to back and shoulder blades with prior history of cholecystectomy 5 years ago with no gallstones found at that time. Now with elevated LFTs. EGD 2 months ago with no acute findings. CT and ultrasound results noted. Hepatitis panel negative. Plan an addendum to follow by Dr. Ayon. Current Visit: Yes History of Present Illness Chief complaint: Abdominal pain History of present illness: Ms. Pizarro is a 76 year old female who was admitted to the hospital with onset of right flank pain. Patient states that she was in her usual state of health until last when she began to have pain in her right upper quadrant that radiated around to her back and shoulder blades. Patient states that the pain continued to worsen throughout the weekend and she was brought to the emergency room for further evaluation. Patient states that the pain seems to be worsened when she eats or drinks something. Not every time she eats or drinks does this occur however states when it does it is severe in nature. It is not associated with nausea or vomiting. She has had this pain in the past and states that it feels very similar to the pain she experienced prior to her cholecystectomy which was done in [address] Haas. She was found at that time to have acalculus cholecystitis with sludge. Surgical note at that time stated patient to have a tortuous cystic duct with initial delayed emptying into the duodenum however no obstructive stones seen at that time. Patient states that she was told several months ago that she had elevated liver enzymes at her follow-up appointment with her PCP. She states her Prilosec was stopped however later restarted by Dr. Ayon. She has had her LFTs rechecked since this time and they were normal range. On admission patient is noted to have had normal LFTs however on yesterday she had an increase with an AST of 182 and an ALT of 140 with normal alkaline phosphatase. Also noted to have normal bilirubin. Her last EGD was done in April of this year with findings of GERD , esophageal stricture with dilation. Recommendations at that time were noted for possible MRCP due to ongoing abdominal pain however patient has an implanted spinal cord stimulator and unable to have an MRI. Patient denies any melena or hematochezia. Denies any coffee-ground or hematemesis. Denies any recent weight loss fever or chills. She was noted on CT of abdomen on admission to have nonobstructing renal stones on the right side with no acute abdominal findings. Liver ultrasound shows no suspicious hepatic lesions, mildly dilated CBD, 0.7 cm, in lieu of postcholecystectomy. Home Medications Medication Instructions Recorded Confirmed Type Estradiol Tab [Estrace Tab] 2 mg PO BEDTIME 10/17/14 07/05/16 History Aspirin [Ecotrin] 81 mg PO BEDTIME 10/18/14 07/05/16 History Cholecalciferol (Vitamin D3) 1,000 unit PO BEDTIME 10/26/15 07/05/16 History [Vitamin D3] HYDROcodone/ACETAMIN 10-325 [[place] 1 tablet PO TID 10/26/15 07/05/16 History 10-325] Lisinopril/Hydrochlorothiazide 1 each PO BEDTIME 10/26/15 07/05/16 History [Lisinopril-Hctz 10-12.5 mg Tab] Metoprolol Tartrate 25 mg PO BEDTIME 10/26/15 07/05/16 History Magnesium Oxide [Magnesium] 400 mg PO BEDTIME 03/07/16 07/05/16 History Omeprazole [Prilosec] 20 mg PO BEDTIME 03/07/16 07/05/16 History Dicyclomine Cap/Tab [Bentyl 10 mg PO QID 04/17/16 07/05/16 History Cap/Tab] Allergies Allergy/AdvReac Type Severity Reaction Status Date / Time Penicillins Allergy Intermediate RASH Verified 07/05/16 15:26 Medical,Surgical,& Family Hx - Medical History Cardio: History of: Hypertension No history of: Aneurysm, [place] Neurology: History of: Migraine (No Longer has), Vertigo No history of: Seizures HEENT: History of: Eye Problem (Wears glasses; poor vision; Cataracts), Dental Problems (Upper Plate) No history of: Ear Problem Respiratory: History of: Bronchitis, Pneumonia (A long time ago; Hx Pneum Vac), Respiratory Problems (Pulmonary edema; No Flu Vac 2015) Genitourinary: History of: Recurring Urinary Tract Infections (march 2016) Gastrointestinal: History of: Diverticulitis/ Diverticulosis, GERD, Hemorrhoids , GI Problems (hiatal hernia, esophageal stricture; redundant colon) Musculoskeletal: History of: Back/Neck Problems (Chronic back pain - epideral steroid injections; Dr. Patel), Herniated Disk, Musculoskeletal Problems ( Arthritis) Hematology: No history of: Anemia, Blood Transfusion Reaction Other: No history of: Anesthesia Reactions, Cancer - Surgical History Cardiac Surgeries: Sugical HX of: Cardiac Catheterization (10 years - Dr. Elmore - Last visit 10/24/2015) HEENT Surgeries: Surgical HX of: Tonsilectomy & Adenoidectomy (Tonsils) Patient denies: Eye Surgery (03/12/[address] Shields; 04/09/16 Sched for Rt Cataract) Abdominal Surgeries: Surgical HX of: Abdominal Surgery, Appendectomy, Cholecystectomy, Colonoscopy, EGD Reproductive Surgeries: Surgical HX of;: Breast Surgery (LEFT lumpectomy), Gynecologic Surgery, Hysterectomy Patient denies;: Genitourinary Surgery Orthopedic Surgeries: Surgical HX of;: Orthopedic Surgery (Rt CTR; Rt RCR) - Family History Family History: Reports;: Family Heart Disease (Brothers x2;), Family Hypertension (Brothers x2; Sister x6; Mother; Father), Family Stroke (Mother, Father) Denies;: Family Cancer - Social History Smoking Status: Never smoker Frequency of Alcohol Use: None Type of Drug Use: None 12 point system: reviewed and no additional remarkable complaints except as stated - Constitutional Constitutional: Present: as per HPI - EENT Eyes: Present: as per HPI Ears: Present: as per HPI Nose, mouth and throat: Present: as per HPI - Cardiovascular Cardiovascular: Present: as per HPI - Respiratory Respiratory: Present: as per HPI - Gastrointestinal Gastrointestinal: Present: as per HPI, abdominal pain, nausea, vomiting - Genitourinary Genitourinary: Present: as per HPI - Musculoskeletal Musculoskeletal: Present: as per HPI - Neurological Neurological: Present: as per HPI - Psychiatric Psychiatric: Present: as per HPI - Endocrine Endocrine: Present: as per HPI - Hematologic/Lymphatic Hematologic/Lymphatic: Present: as per HPI Exam - Constitutional Vitals: Period Temp Pulse Resp BP Sys/Gaxiola Pulse Ox Last 24 Hr 96.7 F-98.6 F 63-92 16-20 120-153/40-76 92-96 General appearance: normal weight, no acute distress - Head Head exam: Present: normal inspection, normocephalic - Eye Eye exam: Present: other (Lids and attentive unremarkable). Absent: scleral icterus - ENT ENT exam: Present: normal exam, normal oropharynx - Neck Neck exam: Present: normal inspection - Respiratory Respiratory exam: Present: clear to auscultation bilaterally. Absent: rales, rhonchi, wheezes - Cardiovascular Cardiovascular exam: Present: regular rate and rhythm. Absent: diastolic murmur , JVD, systolic murmur - GI/Abdominal GI/Abdominal exam: Present: normal bowel sounds, tenderness, soft. Absent: ascites, distended, mass, organomegaly - Extremities Exam Extremities exam: Present: normal inspection, full ROM - Back Exam Back exam: Present: normal inspection - Neurological Exam Neurological exam: Present: alert, oriented X3 - Psychiatric Psychiatric exam: Present: normal affect, normal mood - Skin Skin exam: Present: normal color, warm, dry Results - Labs CBC & BMP: 07/08/16 05:28 07/09/16 Unknown Lab Results: I have reviewed the past 24 hour labs Quality Measures - Stroke Symptom Onset Unknown: No Specialty Discharge - Follow Up or Referrals
[2016-07-09] MEDS: MELATONIN 3 MG TABLET PO PRN (21:12)
[2016-07-09] MEDS: METOPROLOL TARTRATE 25 MG TABLET PO SCH (21:12)
[2016-07-09] MEDS: ASPIRIN EC 81 MG TABLET PO SCH (21:12)
[2016-07-09] MEDS: LISINOPRIL/HCTZ 10-12.5 MG TABLET PO SCH (21:12)
[2016-07-09] MEDS: CHOLECALCIFEROL 1,000 UNIT TABLET PO SCH (21:12)
[2016-07-09] MEDS: ESTRADIOL 1 MG TABLET PO SCH (21:12)
[2016-07-09] MEDS: traMADol 50 MG TABLET PO PRN (21:13)
--- NOTE | 2016-07-09 21:24 | Event Note ---
Patient seen and examined with Drea WYNNE. I agree with history physical findings recorded in RICCI Nguyen note dated today unfortunately I cannot cosign it due to computer conflict. Patient with recurrent right upper quadrant pain and abnormal liver tests and symptoms reminiscent of previous biliary colic prior to cholecystectomy. TENS unit does not permit her to have an MRI and our prior discussion regarding the possibility of new common duct stone and the possibility of ERCP have again been reviewed and she is ready to proceed with this option. Risks, benefits and alternatives including infection, bleeding, perforation and exacerbation of pancreatitis have been reviewed and she is agreeable to proceeding. Abdomen soft nondistended nontender Agree with additional history and physical findings per Drea WYNNE in her note reported today. We will plan ERCP and possible sphincterotomy in a.m.
[2016-07-10] MEDS: MORPHINE 2 MG/1 ML SYRINGE IV PRN (02:57)
[2016-07-10 06:17] LABS: Basophils % 0.1 % (0.0-0.8); Eosinophils # 0.1 10*3/uL (0.0-0.87); Eosinophils % 1.7 % (0.00-10.9); Hematocrit 32.2 VOL% (35.7-47.0); Hemoglobin 10.7 GM/DL (12.0-16.0); Immature Granulocytes % 0.7 %; Immature Granulocytes Absolute 0.05 #; Lymphocytes # 1.3 10*3/uL (1.4-4.0); Lymphocytes % 17.2 % (21.3-54.2); Mean Corpuscular HGB Conc 33.2 GM/DL (32-36); Mean Corpuscular Hemoglobin 30 PG (27-34); Mean Corpuscular Volume 90.2 FL (87-102); Mean Platelet Volume 10.7 FL (9.6-12.0); Monocytes # 0.6 10*3/uL (0.11-0.8); Monocytes % 7.7 % (1.7-12.7); Neutrophils # 5.6 10*3/uL (1.4-7.4); Neutrophils % 72.6 % (38.7-73.9); Platelet Count 114 T/CUMM (130-400); Red Blood Count 3.57 MC/CUMM (3.8-5.5); White Blood Count 7.7 T/CUMM (4-12)
[2016-07-10 06:28] LABS: PT Patient Result 10.8 SECS
[2016-07-10 07:00] LABS: Albumin 2.7 G/DL (3.4-5.0); Bilirubin,Direct 0.2 MG/DL (0.0-0.20); Bilirubin,Indirect 0.5 MG/DL (0.0-1.0); Bilirubin,Total 0.7 MG/DL (0.2-1.0); Total Protein 5.2 G/DL (6.4-8.3)
[2016-07-10] MEDS: SODIUM CHLORIDE 0.9% 1,000 ML IV SCH ×2 (09:36→16:48)
[2016-07-10] MEDS ORDERED: fentaNYL 100 MCG/2 ML VIAL ONE (12:37)
[2016-07-10] MEDS ORDERED: MIDAZOLAM 2 MG/2 ML VIAL ONE (12:38)
[2016-07-10] MEDS ORDERED: PROPOFOL 200 MG/20 ML VIAL IV ONE (12:40)
[2016-07-10] MEDS ORDERED: ONDANSETRON 4 MG/2 ML VIAL ONE (12:40)
[2016-07-10] MEDS ORDERED: LIDOCAINE 2% 5 ML VIAL ONE (12:40)
--- NOTE | 2016-07-10 12:41 | Urology Progress Note ---
Urology - PN: Subj Interval history: Patient is going for ERCP today. I will sign off. We will see back as needed. Exam - Constitutional Vitals: Period Temp Pulse Resp BP Sys/Gaxiola Pulse Ox Last 24 Hr 97.6 F-98.6 F 69-82 18-20 124-151/54-84 93-96 Results - Labs CBC & BMP: 07/10/16 05:51 07/10/16 05:51 Specialty Discharge - Follow Up or Referrals
[2016-07-10] MEDS: DICYCLOMINE 10 MG CAPSULE PO SCH ×4 (12:54→22:12)
--- NOTE | 2016-07-10 13:00 | History and Physical Update ---
History and Physical Update - Physical Exam Mental Status: alert and oriented Heart: regular rate and rhythm Lung: clear to auscultation Abdomen: within normal limits Vitals: within normal limits
--- NOTE | 2016-07-10 13:03 | Operative Note ---
Date of procedure: 07/10/16 Pre-op diagnosis: Abnormal liver test with right upper quadrant pain history of biliary slowl Procedure: Endoscopic retrograde cholangiopancreatography with sphincterotomy and balloon stone extraction 76-year-old female with recurrent episodes of epigastric right upper quadrant pain with nausea and vomiting elevated liver test. Prior cholecystectomy with reported sludge in the cystic duct and slow emptying into the duodenum. MRI had been offered however the patient has a TENS unit and this was not feasible. She is now for ERCP to further evaluate the above. Informed consent was obtained the patient. Patient was sedated with MAC anesthesia. The patient was placed in the prone position. The Olympus duodenal scope was inserted under direct vision advanced through the esophagus stomach pylorus into the duodenum. The ampulla appears fairly flat. There is no clear evidence of diverticulum although the appearance of this suggests some flattening of the ampulla as might be expected from early diverticular formation. The sphincterotome was utilized and the bile duct was opacified with what appears to be a shelf of the distal bile duct. Some refractive debris was noted as well. There is mild dilatation of the common bile duct common hepatic duct. The cystic duct is clipped with no leak. It was elected to proceed with sphincterotomy and 8 mm sphincterotomy was performed without difficulty. During the sphincterotomy what appeared to be some stone fragments was noted to pass from the bile duct. Subsequently a balloon catheter was inserted 2 to the region of chris hepatis inflated to 10 mm of brought out in the duodenum. No further stone fragments were seen on postop cholangiogram. No pancreatogram was obtained. The procedure was terminated placed our procedure well she is discharged recovery in good condition. Postop diagnosis 1. Choledocholithiasis now status post successful ERCP sphincterotomy 2. 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 Anesthesia: MAC Surgeon / Physician: Abel Ayon Estimated blood loss: none Specimens: none sent Condition: stable Disposition: post procedure unit Results - Labs CBC & BMP: 07/10/16 05:51 07/10/16 05:51 Discharge Plan - Discharge Medications No Action Estradiol Tab [Estrace Tab] 2 mg PO BEDTIME Aspirin [Ecotrin] 81 mg PO BEDTIME Cholecalciferol (Vitamin D3) [Vitamin D3] 1,000 unit PO BEDTIME Lisinopril/Hydrochlorothiazide [Lisinopril-Hctz 10-12.5 mg Tab] 1 each PO BEDTIME Metoprolol Tartrate 25 mg PO BEDTIME HYDROcodone/ACETAMIN 10-325 [[place] 10-325] 1 tablet PO TID Magnesium Oxide [Magnesium] 400 mg PO BEDTIME Omeprazole [Prilosec] 20 mg PO BEDTIME Dicyclomine Cap/Tab [Bentyl Cap/Tab] 10 mg PO QID - Follow Up or Referral - Forms/Instructions Instructions: Urinary Tract Infection in Women (ED), Flank Pain (ED)
--- NOTE | 2016-07-10 13:04 | Physician Query Form ---
CLICK EDIT DOCUMENT TO SELECT QUERY ANSWER --> OK --> SIGN Sheri Olmstead RN Clinical Cluster Bore Operator W) [phone] (f) [phone] [email or web address] PROVIDERS: Make your selection(s) from the choices in EACH section by typing an "x" and enter comments in the comment section. Please use your independent medical judgment in providing your response. This request does not imply that any particular answer is desired or expected. CLINICAL INDICATORS: (Providers should not edit this section) Based on serum Creatinine from 1.30 to 0.90, GFR form 46 to 71. "Acute nonobstructive renal stone on the right" Monitored with serial lab checks. Treated with NS bolus and infusion. Clarify which of the following most accurately represents the patient's renal status: ( ) Acute kidney injury (non-traumatic) ( x) Acute renal failure ( ) Acute renal failure with underlying Chronic Kidney Disease (CKD) - please provide stage below ( ) Acute renal failure with pathological renal lesion ( ) Acute renal failure with necrosis ( ) tubular ( ) medullary ( ) cortical ( ) CKD - please provide stage below ( ) End Stage Renal Disease ( ) Acute interstitial nephritis ( ) Hepatorenal syndrome ( ) Other, please specify: ( ) Clinically unable to determine Chronic Kidney Disease Stages Source: National Kidney [employer] Foundation ( ) Stage I (eGFR > or = 90) ( ) Stage II (eGFR 60 - 89) ( ) Stage III (eGFR 30 - 59) ( ) Stage IV (eGFR 15 - 29) ( ) Stage V (eGFR < 15 or dialysis) COMMENTS: Use of terms such as suspected, likely, or probable (associated with a specific diagnosis that is being evaluated, monitored, or treated as if it exists) are acceptable and can be restated in the discharge summary if not ruled out. MTDD
--- NOTE | 2016-07-10 13:11 | Anesthesia Post-Op ---
Anesthesia Post OP - Post Ansesthetic Evaluation Patient seen in post op: Yes Resp: within normal limits CV: within normal limits Mental: within normal limits Temp: within normal limits [id number]: within normal limits Nausea and Vomiting: within normal limits Pain: within normal limits
--- NOTE | 2016-07-10 13:51 | XRay Report ---
Referring Physician: Abel Ayon MD Exam: XR abdomen complete with decubitus view Date: July 10, 2016 at 1:22 PM Reason: Generalized abdominal pain after procedure Comparison: Abdomen 2 views July 05, 2016 Findings: There is gaseous distention of the colon and mild scattered air within the small bowel. This could represent ileus. No free air is identified. The renal shadows are largely obscured. There are surgical clips within the right upper quadrant, suggesting cholecystectomy. A neurostimulator device is also in place with leads extending to the lower thoracic spine. There is mild scoliosis and multilevel degenerative change at the lumbar spine. No acute osseous process is identified. Impression: There is gaseous distention of the colon and mild scattered air within the small bowel. This could represent ileus. PROCEDURE INTERPRETED AT [facility] DEPARTMENT OF RADIOLOGY Final Report Signed by: Dr. Kimberly Hartmann
[2016-07-10] MEDS ORDERED: SIMETHICONE CHEW 80 MG TABLET PO PRN (14:26)
[2016-07-10] MEDS: SULFAMETHOX/TRIMETHOPRIM 800-160 MG TABLET PO SCH ×2 (15:00→22:13)
[2016-07-10] MEDS: PANTOPRAZOLE 40 MG TABLET PO SCH (15:00)
--- NOTE | 2016-07-10 15:52 | Hospitalist Progress Note ---
Hospitalist: Subjective Interval history: RUQ pain much better since procedure. No fever. No cp or SOB. Awaiting dinner. Exam - Constitutional Vitals: Period Temp Pulse Resp BP Sys/Gaxiola Pulse Ox Last 24 Hr 97.6 F-98.6 F 66-82 16-20 124-189/44-93 90-98 Exam: A and O x 3, NAD, morbidly obese RRR no M CTAB nonlabored Soft, NT, ND, +BS difficult to assess for HSM or masses given body habitus Warm no c/c/e Results - Labs CBC & BMP: 07/10/16 05:51 07/10/16 05:51 - Impressions (1) Elevated liver function tests s/p ERCP and sphincterotomy 07/10 Status: Acute Assessment and plan: Improving s/p procedure. liver U/S unremarkable. Viral hepatitis panel negative. GI appreciated. DC [place] and tylenol. Tramadol trial. Current Visit: Yes (2) UTI (urinary tract infection)/ cystitis Status: Acute Assessment and plan: MRSA isolated on Ucx. Given the presence of a non-obstructing stone, patient will need prolonged abx until stone passage and/or removal occurs. Cont Bactrim (bactericidal) but would likely benefit from long-term suppression with Doxy ( bacteriastatic) as it has less potential side effects. D/W urology (Dr. Allison ). He does not feel this is pyelonephritis. Current Visit: Yes Qualifiers: Urinary tract infection type: acute cystitis Hematuria presence: without hematuria Qualified Code(s): N30.00 - Acute cystitis without hematuria (3) Right flank pain Status: Acute Assessment and plan: Improved. Pain meds prn. Current Visit: Yes (4) Hypertension Status: Chronic Current Visit: Yes Qualifiers: Hypertension type: essential hypertension Qualified Code(s): I10 - Essential (primary) hypertension - cont current therapy (5) Renal stones Status: Acute Current Visit: Yes -Stones are too small for intervention at this time. D/W Dr. Allison. (6) Lumbar spondylosis - pain control as needed DVT prophylaxis -Dispo: Possibly dc to home if tolerates po in the next day or so. D/W pt and all questions answered. Quality Measures - Stroke Symptom Onset Unknown: No Specialty Discharge - Follow Up or Referrals
--- NOTE | 2016-07-10 16:43 | Fluoroscopy Report ---
[place] ERCP w sphincterotomy Indication: Abdominal pain. Elevated LFTs. History of cholecystectomy. ERCP: Fluoroscopy time 1 minute 56 seconds. 3 captured images total. ERCP is performed and there is a meniscus filling defect in the distal CBD without explanation. Final image shows contrast in the biliary collecting system but no CT contrast in bowel. Impression: Filling defect in the distal CBD on the middle image, of indeterminate etiology. This may be a stone, mass, bubble or balloon. PROCEDURE INTERPRETED AT [facility] DEPARTMENT OF RADIOLOGY Final Report Signed by: Lon Tobar M.D.
[2016-07-10] MEDS: LISINOPRIL/HCTZ 10-12.5 MG TABLET PO SCH (22:11)
[2016-07-10] MEDS: MELATONIN 3 MG TABLET PO PRN (22:11)
[2016-07-10] MEDS: ASPIRIN EC 81 MG TABLET PO SCH (22:12)
[2016-07-10] MEDS: ESTRADIOL 1 MG TABLET PO SCH (22:12)
[2016-07-10] MEDS: CHOLECALCIFEROL 1,000 UNIT TABLET PO SCH (22:12)
[2016-07-10] MEDS: traMADol 50 MG TABLET PO PRN (22:13)
[2016-07-10] MEDS: METOPROLOL TARTRATE 25 MG TABLET PO SCH (22:14)
[2016-07-10] MEDS ORDERED: LEVOFLOXACIN INJ 500 MG in PREMIX 1 EACH IV SCH (23:00)
[2016-07-11] MEDS: MORPHINE 2 MG/1 ML SYRINGE IV PRN ×2 (00:23→12:08)
[2016-07-11] MEDS: SODIUM CHLORIDE 0.9% 1,000 ML IV SCH ×2 (03:10→12:30)
--- NOTE | 2016-07-11 08:55 | Discharge Summary ---
<Daniel Griffin - Last Filed: 07/11/16 08:49> Hospital Course - Hospital Course Hospital Course: This patient is a 76-year-old female who was admitted on 07/05/2016 for the [facility] ED with right flank pain consistent with UTI. In the emergency room, she was started on Rocephin and this was continued when she was transferred to the floor with the addition of IV Levaquin and IV fluids. Abdominal x-ray and chest x-ray were both negative on admission. Renal ultrasound showed simple cysts in the mid right kidney. Abdominal CT showed particulate nonobstructive renal stones on the right. Urology was then consulted and found the patient to have symptoms consistent with pyelonephritis and she was then started on Bactrim. On 07/08/2016, the patient had elevated LFTs and a subsequent liver ultrasound was ordered which returned negative for hepatic lesions. Urine culture returned positive for MRSA. Urology felt the patient would benefit from long-term suppression with doxycycline upon discharge. However, urology was no longer convinced that patient's pain was from pyelonephritis. 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 Patient is now feeling much better and afebrile status post ERCP. At this time, patient has reached maximum benefit from hospitalization and is stable for discharge. Additional discharge instructions will follow per addendum from Dr. Quezada. - Time spent with patient Time with patient DS: Greater than 30 minutes Specialty Discharge - Follow Up or Referrals Follow up with: Abel Ayon MD [Physician] - 2 Weeks Gabriella Mcgill MD [Physician] - 2 Weeks (F/U MRSA UTI/ nephrolithiasis) , PCP [Other] - 2 Weeks Discharge Plan - Discharge Medications No Action Estradiol Tab [Estrace Tab] 2 mg PO BEDTIME Aspirin [Ecotrin] 81 mg PO BEDTIME Cholecalciferol (Vitamin D3) [Vitamin D3] 1,000 unit PO BEDTIME Lisinopril/Hydrochlorothiazide [Lisinopril-Hctz 10-12.5 mg Tab] 1 each PO BEDTIME Metoprolol Tartrate 25 mg PO BEDTIME HYDROcodone/ACETAMIN 10-325 [[place] 10-325] 1 tablet PO TID Magnesium Oxide [Magnesium] 400 mg PO BEDTIME Omeprazole [Prilosec] 20 mg PO BEDTIME Dicyclomine Cap/Tab [Bentyl Cap/Tab] 10 mg PO QID - Follow Up or Referral - Forms/Instructions Instructions: Urinary Tract Infection in Women (ED), Flank Pain (ED) Exam - Constitutional Vitals: Period Temp Pulse Resp BP Sys/Gaxiola Pulse Ox Last 24 Hr 97.3 F-98.9 F 55-88 16-20 119-189/44-93 90-99 DS: Provider Date of admission: 07/05/16 18:49 Primary care physician: Marshall Avelar MD Attending physician on admission: Ulises Farias MD Consults: 07/07/16 07:55 Consult to Physician [CONS] Routine Comment: right kidney stones Consulting Provider: Gabriella Mcgill When should Consulting Provider be notified: Now Person Notified: Dr. Rust Date Notified: 07/07/16 Time Notified: 08:29 Consult Notification Comment: CONSULTED GABRIELLA MCGILL ON FRIDAY. RP 07/08/16 18:35 Consult to Physician [CONS] Routine Comment: Elevated Liver tests (AST/ALT), S/P Cholecystectom Consulting Provider: Abel Ayon Discharging clinician: Daniel STRANGE Expected date of discharge: 07/11/16 <Evi Quezada - Last Filed: 07/11/16 10:44> Hospital Course - Hospital Course Hospital Course: No stone was extracted on ERCP, only sludge noted. Pt feeling much better today and tolerating oral intake. No fever. No abd pain. C/O back pain and thinks it was the bed mattress. Pt will need to complete 10 days of Bactrim and have a urine culture rechecked in approximately 1 week to ensure resolution. I am not sure if patient will require mcc suppression as her nephrolithiasis was too small for intervention. I will defer further management of this to urology and pt's PCP. - Time spent with patient Time with patient DS: Greater than 30 minutes (It has taken me 35 minutes to arrange this discharge.) Diagnosis - Discharge Diagnosis (1) UTI (urinary tract infection) Status: Acute (2) Right flank pain Status: Resolved (3) Hypertension Status: Chronic (4) Renal stones Status: Chronic (5) Elevated liver function tests Status: Acute Exam - Constitutional Exam: A and O x 3, NAD, morbidly obese, sitting in a chair in NAD RRR no M CTAB nonlabored Soft, NT, ND, +BS difficult to assess for HSM or masses given body habitus Warm no c/c/e Back has well healed incision without overlying rash/ ecchymoses. No spinal tenderness.
[2016-07-11] MEDS: DICYCLOMINE 10 MG CAPSULE PO SCH ×2 (09:41→14:10)
[2016-07-11] MEDS: PANTOPRAZOLE 40 MG TABLET PO SCH (09:41)
[2016-07-11] MEDS: SULFAMETHOX/TRIMETHOPRIM 800-160 MG TABLET PO SCH (09:41)
--- NOTE | 2016-07-11 11:03 | Gastrointestinal Progress Note ---
<JuliaDrea Nigel - Last Filed: 07/11/16 11:01> Assessment and Plan (1) Abdominal pain Status: Acute Assessment and plan: 07/11-Abd pain improved, mild soreness. Post ERCP with findings noted. LFTs trending down. Plan and addendum to follow by DR Ayon. 07/09-several day history of right upper quadrant abdominal pain radiating to back and shoulder blades with prior history of cholecystectomy 5 years ago with no gallstones found at that time. Now with elevated LFTs. EGD 2 months ago with no acute findings. CT and ultrasound results noted. Hepatitis panel negative. Plan an addendum to follow by Dr. Ayon. Gastroenterology - PN: Subj Interval history: CC: Choledocholithiasis Pt is seen, awake and alert sitting up in chair with family at side. States she is feeling better today. She is post ERCP with findings of choledocholithiasis and sphincterotomy. 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 Her LFTs are noted to be trending downward today. She is tolerating her diet at present time. She is for discharge home today. ROS: Denies SOB or chest pain Exam (Progress Note) - Constitutional Vitals: Period Temp Pulse Resp BP Sys/Gaxiola Pulse Ox Last 24 Hr 97.3 F-98.9 F 55-88 16-20 119-189/44-93 90-99 General appearance: normal weight, no acute distress - Head Head exam: Present: normal inspection, normocephalic - Eye Eye exam: Present: other (lids and conjunctiva unremarkable). Absent: scleral icterus - ENT ENT exam: Present: normal exam, normal oropharynx - Neck Neck exam: Present: normal inspection - Respiratory Respiratory exam: Present: clear to auscultation bilaterally. Absent: rales, rhonchi, wheezes - Cardiovascular Cardiovascular exam: Present: regular rate and rhythm. Absent: diastolic murmur , JVD, systolic murmur - GI/Abdominal GI/Abdominal exam: Present: normal bowel sounds, soft. Absent: ascites, distended, mass, organomegaly, tenderness - Extremities Exam Extremities exam: Present: normal inspection, full ROM - Back Exam Back exam: Present: normal inspection - Neurological Exam Neurological exam: Present: alert, oriented X3 - Psychiatric Psychiatric exam: Present: normal affect, normal mood - Skin Skin exam: Present: normal color, warm, dry Results - Labs CBC & BMP: 07/10/16 05:51 07/10/16 05:51 Lab Results: I have reviewed the past 24 hour labs Specialty Discharge - Follow Up or Referrals Follow up with: , PCP [Other] - 2 Weeks Abel Ayon MD [Physician] - 2 Weeks Ephraim Allison MD [Physician] - 07/29/16 1:00 pm (F/U MRSA UTI/ nephrolithiasis) <Abel Ayon - Last Filed: 07/11/16 17:57> Exam (Progress Note) - Constitutional Vitals: Period Temp Pulse Resp BP Sys/Gaxiola Pulse Ox Last 24 Hr 97.1 F-98.9 F 55-88 20-20 119-137/49-79 95-99 Results - Labs CBC & BMP: 07/10/16 05:51 07/10/16 05:51
[2016-07-11] MEDS ORDERED: PNEUMOCOCCAL VACCINE (13 VALENT) 0.5 ML SYRINGE IM ONE (11:30)
[2016-07-11 13:30] VITALS: BP 127/60
== END 2016-07-11 15:00 | disposition home or self-care (01) | DRG 445 ==
LOC: N.ED 15:05 → SUATTDRO 18:49 → N.EDINP 18:49 → N.2E 19:28
PROVIDERS: ADMIT Internal Medicine; ATTEND Pediatrics
PROC: ERCPWSP (ICD-10-PCS; 2016-07-10 11:35)

== ENCOUNTER 2017-06-24 13:47 | Inpatient (IN) ==
[2017-06-24 15:10] LABS: Basophils % 0.3 % (0.0-0.8); Eosinophils # 0.2 10*3/uL (0.0-0.87); Eosinophils % 3.1 % (0.00-10.9); Hematocrit 36.5 VOL% (35.7-47.0); Hemoglobin 11.8 GM/DL (12.0-16.0); Immature Granulocytes % 0.3 %; Immature Granulocytes Absolute 0.02 #; Lymphocytes # 1.9 10*3/uL (1.4-4.0); Lymphocytes % 25.9 % (21.3-54.2); Mean Corpuscular HGB Conc 32.3 GM/DL (32-36); Mean Corpuscular Hemoglobin 28 PG (27-34); Mean Corpuscular Volume 85.1 FL (87-102); Mean Platelet Volume 10.9 FL (9.6-12.0); Monocytes # 0.6 10*3/uL (0.11-0.8); Monocytes % 8.4 % (1.7-12.7); Neutrophils # 4.6 10*3/uL (1.4-7.4); Platelet Count 189 T/CUMM (130-400); Red Blood Count 4.29 MC/CUMM (3.8-5.5); Red Cell Distribution Width 13.8 % (9.3-17.3); White Blood Count 7.4 T/CUMM (4-12)
[2017-06-24] MEDS ORDERED: MORPHINE 4 MG/1 ML VIAL IV STA ×2 (15:11→17:14)
[2017-06-24] MEDS ORDERED: ONDANSETRON 4 MG/2 ML VIAL IV STA (15:11)
[2017-06-24 15:16] LABS: Apearance,Urine Slightly Hazy (Clear); Bacteria,Urine Many /HPF (Few); Bilirubin,Urine Negative (Negative); Blood, Urine Negative (Negative); Glucose,Urine (UA) Negative (Negative); Hyaline Casts,Urine 1 /LPF (0-3); Ketones,Urine Negative (Negative); Mucus,Urine Occasional /LPF (Occasional); Nitrite,Urine Negative (Negative); Protein,Urine Negative; RBC,Urine 1 /HPF (0-4); Squamous Epithelial Cell,Urine Occasional /HPF (0-10); Urine Color Yellow (Yellow); Urine Urobilinogen < 2.0 EU/DL (0.2-1.0); WBC,Urine 3 /HPF (0-6)
[2017-06-24] MEDS ORDERED: MORPHINE 4 MG/1 ML VIAL ONE ×2 (15:18→18:24)
[2017-06-24] MEDS ORDERED: ONDANSETRON 4 MG/2 ML VIAL ONE (15:19)
[2017-06-24 15:46] LABS: Alanine Aminotransferase 21 U/L (13-56); Albumin 3.4 G/DL (3.4-5.0); Alkaline Phosphatase 76 U/L (45-117); Aspartate Amino Transferase 16 U/L (0-37); Bilirubin,Total < 0.39 MG/DL (0.2-1.0); Blood Urea Nitrogen 25 MG/DL (7-18); Calcium 8.5 MG/DL (8.5-10.1); Glucose 114 MG/DL (74-106); Osmolality,Calculated 281.5 MOS/KG (273-304); Potassium 4.1 MMOL/L (3.5-5.1); Sodium 139 MMOL/L (136-145); Total Protein 6.8 G/DL (6.4-8.3)
[2017-06-24] MEDS ORDERED: LEVOFLOXACIN INJ 500 MG in PREMIX 1 EACH IV STA (17:12)
[2017-06-24] MEDS ORDERED: metroNIDAZOLE INJ 500 MG in PREMIX 1 EACH IV STA (17:13)
[2017-06-24] MEDS ORDERED: LEVOFLOXACIN INJ 100 ML IV ONE (18:23)
[2017-06-24] MEDS ORDERED: ACETAMINOPHEN 325 MG TABLET PO PRN (19:09)
[2017-06-24] MEDS ORDERED: ONDANSETRON 4 MG/2 ML VIAL IV PRN (19:09)
[2017-06-24] MEDS: MORPHINE 4 MG/1 ML VIAL IV PRN (20:30)
[2017-06-24] MEDS: DOCUSATE SODIUM 100 MG CAPSULE PO SCH (20:31)
[2017-06-24] MEDS: SODIUM CHLORIDE 0.9% 1,000 ML IV SCH (20:31)
[2017-06-25] MEDS: MORPHINE 4 MG/1 ML VIAL IV PRN ×6 (00:27→23:49)
[2017-06-25] MEDS: metroNIDAZOLE INJ 500 MG in PREMIX 1 EACH IV SCH ×3 (01:44→17:20)
[2017-06-25 05:31] LABS: Basophils % 0.2 % (0.0-0.8); Eosinophils # 0.1 10*3/uL (0.0-0.87); Eosinophils % 2.3 % (0.00-10.9); Hematocrit 34.9 VOL% (35.7-47.0); Hemoglobin 11.5 GM/DL (12.0-16.0); Immature Granulocytes % 0.3 %; Immature Granulocytes Absolute 0.02 #; Lymphocytes # 1.1 10*3/uL (1.4-4.0); Lymphocytes % 17.4 % (21.3-54.2); Mean Corpuscular Hemoglobin 28 PG (27-34); Mean Corpuscular Volume 83.5 FL (87-102); Mean Platelet Volume 11.2 FL (9.6-12.0); Monocytes # 0.4 10*3/uL (0.11-0.8); Neutrophils # 4.4 10*3/uL (1.4-7.4); Neutrophils % 72.8 % (38.7-73.9); Platelet Count 171 T/CUMM (130-400); Red Blood Count 4.18 MC/CUMM (3.8-5.5)
[2017-06-25 06:07] LABS: Albumin 3.2 G/DL (3.4-5.0); Bilirubin,Total 1.5 MG/DL (0.2-1.0); Calcium 8.3 MG/DL (8.5-10.1); Osmolality,Calculated 282.5 MOS/KG (273-304); Potassium 3.9 MMOL/L (3.5-5.1); Total Protein 6.6 G/DL (6.4-8.3)
[2017-06-25] MEDS: PANTOPRAZOLE 40 MG TABLET PO SCH (08:00)
[2017-06-25] MEDS: DOCUSATE SODIUM 100 MG CAPSULE PO SCH ×2 (08:00→21:11)
[2017-06-25 11:09] LABS: PT Patient Result 10.9 SECS
[2017-06-25] MEDS ORDERED: ONDANSETRON 4 MG/2 ML VIAL ONE (11:11)
[2017-06-25] MEDS ORDERED: PROPOFOL 200 MG/20 ML VIAL IV ONE (11:11)
[2017-06-25] MEDS ORDERED: LIDOCAINE 2% 5 ML VIAL ONE (11:11)
[2017-06-25] MEDS ORDERED: fentaNYL 100 MCG/2 ML VIAL ONE (11:23)
[2017-06-25] MEDS ORDERED: MIDAZOLAM 2 MG/2 ML VIAL ONE (11:23)
[2017-06-25] MEDS ORDERED: INDOMETHACIN SUPP 50 MG SUPP RECTAL ONE (11:30)
[2017-06-25] MEDS ORDERED: hydrALAZINE 20 MG/1 ML VIAL IV PRN ×2 (12:20→12:25)
[2017-06-25] MEDS: SODIUM CHLORIDE 0.9% 1,000 ML IV SCH (13:45)
[2017-06-25] MEDS: LEVOFLOXACIN INJ 500 MG in PREMIX 1 EACH IV SCH (18:20)
[2017-06-25] MEDS: MAGNESIUM OXIDE 400 MG TABLET PO SCH (21:11)
[2017-06-25] MEDS: LISINOPRIL/HCTZ 10-12.5 MG TABLET PO SCH (21:11)
[2017-06-25] MEDS: GABAPENTIN 100 MG CAPSULE PO SCH (21:11)
[2017-06-26] MEDS: metroNIDAZOLE INJ 500 MG in PREMIX 1 EACH IV SCH ×3 (02:36→17:40)
[2017-06-26 05:24] LABS: Basophils % 0.1 % (0.0-0.8); Eosinophils # 0.2 10*3/uL (0.0-0.87); Eosinophils % 1.6 % (0.00-10.9); Hematocrit 35.3 VOL% (35.7-47.0); Hemoglobin 11.1 GM/DL (12.0-16.0); Immature Granulocytes % 0.5 %; Immature Granulocytes Absolute 0.05 #; Lymphocytes # 0.4 10*3/uL (1.4-4.0); Lymphocytes % 4.7 % (21.3-54.2); Mean Corpuscular HGB Conc 31.4 GM/DL (32-36); Mean Corpuscular Hemoglobin 27 PG (27-34); Mean Corpuscular Volume 87.2 FL (87-102); Mean Platelet Volume 10.9 FL (9.6-12.0); Monocytes # 0.7 10*3/uL (0.11-0.8); Monocytes % 7.5 % (1.7-12.7); Neutrophils # 8.1 10*3/uL (1.4-7.4); Neutrophils % 85.6 % (38.7-73.9); Platelet Count 144 T/CUMM (130-400); Red Blood Count 4.05 MC/CUMM (3.8-5.5); Red Cell Distribution Width 14.2 % (9.3-17.3); White Blood Count 9.4 T/CUMM (4-12)
[2017-06-26 05:53] LABS: Band Neutrophils 4 % (0-10); Eosinophils 2 % (0-10); Giant Platelets Few; Hypochromasia Slight; Lymphocytes 4 % (20-55); Ovalocytes Slight; Platelet Estimate Normal; Segmented Neutrophils 81 % (50-85); Total Cells Counted 100
[2017-06-26 05:58] LABS: Bilirubin,Direct 1.58 MG/DL (0.0-0.20); Bilirubin,Indirect 0.7 MG/DL (0.0-1.0); Bilirubin,Total 2.3 MG/DL (0.2-1.0); Calcium 8.6 MG/DL (8.5-10.1); Osmolality,Calculated 281.4 MOS/KG (273-304); Potassium 4.3 MMOL/L (3.5-5.1); Total Protein 6.1 G/DL (6.4-8.3)
[2017-06-26] MEDS: MORPHINE 4 MG/1 ML VIAL IV PRN ×3 (07:51→22:55)
[2017-06-26] MEDS: LEVOFLOXACIN INJ 500 MG in PREMIX 1 EACH IV SCH (08:35)
[2017-06-26] MEDS ORDERED: LISINOPRIL/HCTZ 10-12.5 MG TABLET PO SCH (09:00)
[2017-06-26] MEDS: DOCUSATE SODIUM 100 MG CAPSULE PO SCH ×2 (09:35→21:03)
[2017-06-26] MEDS: PANTOPRAZOLE 40 MG TABLET PO SCH (09:35)
[2017-06-26] MEDS: SODIUM CHLORIDE 0.9% 1,000 ML IV SCH ×2 (11:20→13:30)
[2017-06-26] MEDS: GABAPENTIN 100 MG CAPSULE PO SCH (21:03)
[2017-06-26] MEDS: LISINOPRIL/HCTZ 10-12.5 MG TABLET PO SCH (21:03)
[2017-06-26] MEDS: MAGNESIUM OXIDE 400 MG TABLET PO SCH (21:03)
[2017-06-27] MEDS: metroNIDAZOLE INJ 500 MG in PREMIX 1 EACH IV SCH ×3 (02:34→17:52)
[2017-06-27 03:44] LABS: Basophils % 0.2 % (0.0-0.8); Eosinophils # 0.2 10*3/uL (0.0-0.87); Eosinophils % 2.7 % (0.00-10.9); Hematocrit 32.6 VOL% (35.7-47.0); Hemoglobin 10.2 GM/DL (12.0-16.0); Immature Granulocytes % 0.5 %; Immature Granulocytes Absolute 0.03 #; Lymphocytes # 1.2 10*3/uL (1.4-4.0); Lymphocytes % 21.4 % (21.3-54.2); Mean Corpuscular HGB Conc 31.3 GM/DL (32-36); Mean Corpuscular Hemoglobin 27 PG (27-34); Mean Corpuscular Volume 86.2 FL (87-102); Mean Platelet Volume 10.9 FL (9.6-12.0); Monocytes # 0.7 10*3/uL (0.11-0.8); Monocytes % 11.7 % (1.7-12.7); Neutrophils # 3.6 10*3/uL (1.4-7.4); Neutrophils % 63.5 % (38.7-73.9); Platelet Count 134 T/CUMM (130-400); Red Blood Count 3.78 MC/CUMM (3.8-5.5); Red Cell Distribution Width 14.6 % (9.3-17.3); White Blood Count 5.7 T/CUMM (4-12)
[2017-06-27] MEDS: MORPHINE 4 MG/1 ML VIAL IV PRN ×2 (03:55→14:43)
[2017-06-27 04:15] LABS: Albumin 2.8 G/DL (3.4-5.0); Bilirubin,Direct 0.38 MG/DL (0.0-0.20); Bilirubin,Indirect 0.9 MG/DL (0.0-1.0); Bilirubin,Total 1.3 MG/DL (0.2-1.0); Calcium 8.3 MG/DL (8.5-10.1); Osmolality,Calculated 282.3 MOS/KG (273-304); Potassium 3.8 MMOL/L (3.5-5.1); Total Protein 5.7 G/DL (6.4-8.3)
[2017-06-27] MEDS: DOCUSATE SODIUM 100 MG CAPSULE PO SCH ×2 (08:19→21:03)
[2017-06-27] MEDS: PANTOPRAZOLE 40 MG TABLET PO SCH (08:19)
[2017-06-27] MEDS: SODIUM CHLORIDE 0.9% 1,000 ML IV SCH ×2 (08:20→13:30)
[2017-06-27] MEDS: LEVOFLOXACIN INJ 500 MG in PREMIX 1 EACH IV SCH (09:14)
[2017-06-27] MEDS ORDERED: SODIUM CHLORIDE 0.9% 250 ML IV ONE (12:43)
[2017-06-27] MEDS: LISINOPRIL/HCTZ 10-12.5 MG TABLET PO SCH (21:03)
[2017-06-27] MEDS: GABAPENTIN 100 MG CAPSULE PO SCH (21:03)
[2017-06-27] MEDS: MAGNESIUM OXIDE 400 MG TABLET PO SCH (21:03)
[2017-06-28] MEDS: metroNIDAZOLE INJ 500 MG in PREMIX 1 EACH IV SCH ×3 (01:05→18:52)
[2017-06-28] MEDS: PANTOPRAZOLE 40 MG TABLET PO SCH (09:18)
[2017-06-28] MEDS: DOCUSATE SODIUM 100 MG CAPSULE PO SCH ×2 (09:18→20:46)
[2017-06-28] MEDS: LEVOFLOXACIN INJ 500 MG in PREMIX 1 EACH IV SCH (09:18)
[2017-06-28] MEDS: SODIUM CHLORIDE 0.9% 1,000 ML IV SCH ×3 (12:31→23:18)
[2017-06-28] MEDS: GABAPENTIN 100 MG CAPSULE PO SCH (20:46)
[2017-06-28] MEDS: LISINOPRIL/HCTZ 10-12.5 MG TABLET PO SCH (20:46)
[2017-06-28] MEDS: MAGNESIUM OXIDE 400 MG TABLET PO SCH (20:46)
[2017-06-28] MEDS: MORPHINE 4 MG/1 ML VIAL IV PRN (23:17)
[2017-06-29] MEDS: metroNIDAZOLE INJ 500 MG in PREMIX 1 EACH IV SCH ×3 (01:21→17:46)
[2017-06-29] MEDS: PANTOPRAZOLE 40 MG TABLET PO SCH (08:21)
[2017-06-29] MEDS: LEVOFLOXACIN INJ 500 MG in PREMIX 1 EACH IV SCH (08:21)
[2017-06-29] MEDS: DOCUSATE SODIUM 100 MG CAPSULE PO SCH ×2 (08:22→20:02)
[2017-06-29 09:54] LABS: Albumin 2.7 G/DL (3.4-5.0); Bilirubin,Direct 0.18 MG/DL (0.0-0.20); Bilirubin,Indirect 0.2 MG/DL (0.0-1.0); Bilirubin,Total 0.4 MG/DL (0.2-1.0); Total Protein 5.5 G/DL (6.4-8.3)
[2017-06-29] MEDS: MORPHINE 4 MG/1 ML VIAL IV PRN ×2 (12:57→20:05)
[2017-06-29] MEDS: SODIUM CHLORIDE 0.9% 1,000 ML IV SCH (19:30)
[2017-06-29] MEDS: LISINOPRIL/HCTZ 10-12.5 MG TABLET PO SCH (20:01)
[2017-06-29] MEDS: GABAPENTIN 100 MG CAPSULE PO SCH (20:01)
[2017-06-29] MEDS: MAGNESIUM OXIDE 400 MG TABLET PO SCH (20:01)
[2017-06-30] MEDS: metroNIDAZOLE INJ 500 MG in PREMIX 1 EACH IV SCH ×3 (01:13→17:43)
[2017-06-30] MEDS: MORPHINE 4 MG/1 ML VIAL IV PRN ×2 (04:28→15:33)
[2017-06-30] MEDS ORDERED: LABETALOL 100 MG/20 ML VIAL IV ONE (05:00)
[2017-06-30] MEDS: DOCUSATE SODIUM 100 MG CAPSULE PO SCH ×2 (08:59→20:57)
[2017-06-30] MEDS: PANTOPRAZOLE 40 MG TABLET PO SCH (08:59)
[2017-06-30] MEDS: LEVOFLOXACIN INJ 500 MG in PREMIX 1 EACH IV SCH (09:00)
[2017-06-30 09:23] LABS: Basophils % 0.2 % (0.0-0.8); Eosinophils # 0.2 10*3/uL (0.0-0.87); Eosinophils % 2.7 % (0.00-10.9); Hemoglobin 10.1 GM/DL (12.0-16.0); Immature Granulocytes % 0.6 %; Immature Granulocytes Absolute 0.04 #; Lymphocytes # 1.3 10*3/uL (1.4-4.0); Lymphocytes % 19.6 % (21.3-54.2); Mean Corpuscular HGB Conc 32.6 GM/DL (32-36); Mean Corpuscular Hemoglobin 28 PG (27-34); Mean Corpuscular Volume 84.7 FL (87-102); Mean Platelet Volume 10.8 FL (9.6-12.0); Monocytes # 0.4 10*3/uL (0.11-0.8); Monocytes % 5.8 % (1.7-12.7); Neutrophils # 4.6 10*3/uL (1.4-7.4); Neutrophils % 71.1 % (38.7-73.9); Platelet Count 133 T/CUMM (130-400); Red Blood Count 3.66 MC/CUMM (3.8-5.5); Red Cell Distribution Width 14.8 % (9.3-17.3); White Blood Count 6.4 T/CUMM (4-12)
[2017-06-30 10:04] LABS: Alanine Aminotransferase 39 U/L (13-56); Albumin 2.7 G/DL (3.4-5.0); Alkaline Phosphatase 72 U/L (45-117); Aspartate Amino Transferase 36 U/L (0-37); Bilirubin,Indirect 0.2 MG/DL (0.0-1.0); Bilirubin,Total < 0.39 MG/DL (0.2-1.0); Blood Urea Nitrogen 11 MG/DL (7-18); Calcium 8.4 MG/DL (8.5-10.1); Glucose 188 MG/DL (74-106); Osmolality,Calculated 284.3 MOS/KG (273-304); Potassium 3.8 MMOL/L (3.5-5.1); Sodium 141 MMOL/L (136-145); Total Protein 5.6 G/DL (6.4-8.3)
[2017-06-30] MEDS: amLODIPine 5 MG TABLET PO SCH (14:23)
[2017-06-30] MEDS: SODIUM CHLORIDE 0.9% 1,000 ML IV SCH ×2 (19:56→21:52)
[2017-06-30] MEDS: MAGNESIUM OXIDE 400 MG TABLET PO SCH (20:57)
[2017-06-30] MEDS: GABAPENTIN 100 MG CAPSULE PO SCH (20:57)
[2017-06-30] MEDS: LISINOPRIL/HCTZ 10-12.5 MG TABLET PO SCH (20:57)
[2017-07-01] MEDS: metroNIDAZOLE INJ 500 MG in PREMIX 1 EACH IV SCH ×2 (01:20→11:51)
[2017-07-01 05:10] LABS: Albumin 2.7 G/DL (3.4-5.0); Bilirubin,Direct 0.13 MG/DL (0.0-0.20); Bilirubin,Indirect 1.3 MG/DL (0.0-1.0); Bilirubin,Total 1.4 MG/DL (0.2-1.0); Calcium 8.3 MG/DL (8.5-10.1); Potassium 3.3 MMOL/L (3.5-5.1); Total Protein 5.5 G/DL (6.4-8.3)
[2017-07-01] MEDS: DOCUSATE SODIUM 100 MG CAPSULE PO SCH (09:23)
[2017-07-01] MEDS: LEVOFLOXACIN INJ 500 MG in PREMIX 1 EACH IV SCH (09:24)
[2017-07-01] MEDS: PANTOPRAZOLE 40 MG TABLET PO SCH (09:24)
[2017-07-01] MEDS: amLODIPine 5 MG TABLET PO SCH (09:24)
[2017-07-01 11:25] VITALS: BP 152/67
== END 2017-07-01 15:50 | disposition home or self-care (01) | DRG 445 ==
LOC: N.ED 13:47 → N.EDINP 17:41 → N.3E 18:53
PROVIDERS: ADMIT Family Medicine; ATTEND Family Medicine

== ENCOUNTER 2018-03-12 10:35 | Observation (INO) ==
[2018-03-12 12:51] LABS: Basophils % 0.1 % (0.0-0.8); Eosinophils # 0.2 10*3/uL (0.0-0.87); Eosinophils % 2.2 % (0.00-10.9); Hematocrit 33.4 VOL% (35.7-47.0); Hemoglobin 10.1 GM/DL (12.0-16.0); Immature Granulocytes % 0.3 %; Immature Granulocytes Absolute 0.02 #; Lymphocytes # 1.3 10*3/uL (1.4-4.0); Lymphocytes % 19.3 % (21.3-54.2); Mean Corpuscular HGB Conc 30.2 GM/DL (32-36); Mean Corpuscular Hemoglobin 26 PG (27-34); Mean Corpuscular Volume 86.8 FL (87-102); Mean Platelet Volume 10.9 FL (9.6-12.0); Monocytes # 0.4 10*3/uL (0.11-0.8); Monocytes % 6.4 % (1.7-12.7); Neutrophils # 4.8 10*3/uL (1.4-7.4); Neutrophils % 71.7 % (38.7-73.9); Platelet Count 151 T/CUMM (130-400); Red Blood Count 3.85 MC/CUMM (3.8-5.5); Red Cell Distribution Width 14.8 % (9.3-17.3); White Blood Count 6.7 T/CUMM (4-12)
[2018-03-12 13:13] LABS: PT Patient Result 10.7 SECS; Partial Thromboplastin Time 24.7 SECS (0-40)
[2018-03-12 13:20] LABS: Alanine Aminotransferase 14 U/L (13-56); Albumin 3.5 G/DL (3.4-5.0); Alkaline Phosphatase 65 U/L (45-117); Aspartate Amino Transferase 13 U/L (0-37); Bilirubin,Total < 0.39 MG/DL (0.2-1.0); Blood Urea Nitrogen 16 MG/DL (7-18); Calcium 8.7 MG/DL (8.5-10.1); Glucose 94 MG/DL (74-106); Osmolality,Calculated 277.5 MOS/KG (273-304); Potassium 4.2 MMOL/L (3.5-5.1); Sodium 139 MMOL/L (136-145); Total Protein 6.9 G/DL (6.4-8.3)
[2018-03-12] MEDS ORDERED: FUROSEMIDE 40 MG/4 ML VIAL IV STA (13:33)
[2018-03-12] MEDS ORDERED: ACETAMINOPHEN 325 MG TABLET PO PRN (16:02)
[2018-03-12] MEDS: ESTRADIOL 1 MG TABLET PO SCH (21:48)
[2018-03-12] MEDS: ASPIRIN EC 81 MG TABLET PO SCH (21:49)
[2018-03-12] MEDS: METOPROLOL TARTRATE 25 MG TABLET PO SCH (21:49)
[2018-03-12] MEDS: LISINOPRIL/HCTZ 10-12.5 MG TABLET PO SCH (21:49)
[2018-03-12 22:37] LABS: Apearance,Urine CLEAR (Clear); Bilirubin,Urine Negative (Negative); Blood, Urine Small mg/dL (Negative); Glucose,Urine (UA) Negative (Negative); Ketones,Urine Negative (Negative); Mucus,Urine Occasional /LPF (Occasional); Nitrite,Urine Negative (Negative); Protein,Urine Negative; RBC,Urine 1 /HPF (0-4); Squamous Epithelial Cell,Urine Occasional /HPF (0-10); Urine Color Yellow (Yellow); Urine Specific Gravity 1.027 (1.001-1.035); Urine Urobilinogen < 2.0 EU/DL (0.2-1.0); WBC,Urine 2 /HPF (0-6)
[2018-03-13 04:16] LABS: Basophils % 0.2 % (0.0-0.8); Eosinophils # 0.1 10*3/uL (0.0-0.87); Eosinophils % 1.8 % (0.00-10.9); Hematocrit 30.4 VOL% (35.7-47.0); Hemoglobin 9.5 GM/DL (12.0-16.0); Immature Granulocytes % 0.2 %; Immature Granulocytes Absolute 0.01 #; Lymphocytes # 1.7 10*3/uL (1.4-4.0); Lymphocytes % 27.2 % (21.3-54.2); Mean Corpuscular HGB Conc 31.3 GM/DL (32-36); Mean Corpuscular Hemoglobin 27 PG (27-34); Mean Corpuscular Volume 85.9 FL (87-102); Mean Platelet Volume 11.4 FL (9.6-12.0); Monocytes # 0.4 10*3/uL (0.11-0.8); Monocytes % 6.5 % (1.7-12.7); Neutrophils % 64.1 % (38.7-73.9); Platelet Count 129 T/CUMM (130-400); Red Blood Count 3.54 MC/CUMM (3.8-5.5); Red Cell Distribution Width 14.6 % (9.3-17.3); White Blood Count 6.2 T/CUMM (4-12)
[2018-03-13 04:45] LABS: Albumin 2.8 G/DL (3.4-5.0); Bilirubin,Total 0.6 MG/DL (0.2-1.0); Calcium 8.4 MG/DL (8.5-10.1); Osmolality,Calculated 280.4 MOS/KG (273-304); Potassium 3.7 MMOL/L (3.5-5.1); Thyroid Stimulating Hormone 2.63 uIU/ml (0.358-3.74); Total Protein 6.4 G/DL (6.4-8.3)
[2018-03-13] MEDS ORDERED: FUROSEMIDE 20 MG/2 ML VIAL IV SCH (09:00)
[2018-03-13] MEDS: PANTOPRAZOLE 40 MG TABLET PO SCH (09:03)
[2018-03-13] MEDS: METOPROLOL TARTRATE 25 MG TABLET PO SCH ×2 (09:03→21:22)
[2018-03-13] MEDS ORDERED: MAGNESIUM SULF RIDER 4 GM in PREMIX 1 EACH IV PRN (09:08)
[2018-03-13] MEDS ORDERED: MAGNESIUM SULF RIDER 2 GM in PREMIX 1 EACH IV PRN ×2 (09:08→13:11)
[2018-03-13] MEDS ORDERED: FUROSEMIDE 20 MG/2 ML VIAL IV ONE (09:13)
[2018-03-13 09:30] LABS: Basophils % 0.2 % (0.0-0.8); Eosinophils # 0.1 10*3/uL (0.0-0.87); Hematocrit 33.8 VOL% (35.7-47.0); Hemoglobin 10.2 GM/DL (12.0-16.0); Immature Granulocytes % 0.5 %; Immature Granulocytes Absolute 0.03 #; Lymphocytes # 1.1 10*3/uL (1.4-4.0); Lymphocytes % 16.1 % (21.3-54.2); Mean Corpuscular HGB Conc 30.2 GM/DL (32-36); Mean Corpuscular Hemoglobin 26 PG (27-34); Mean Corpuscular Volume 86.9 FL (87-102); Mean Platelet Volume 10.6 FL (9.6-12.0); Monocytes # 0.4 10*3/uL (0.11-0.8); Monocytes % 5.6 % (1.7-12.7); Neutrophils % 75.6 % (38.7-73.9); Platelet Count 149 T/CUMM (130-400); Red Blood Count 3.89 MC/CUMM (3.8-5.5); Red Cell Distribution Width 14.9 % (9.3-17.3); White Blood Count 6.6 T/CUMM (4-12)
[2018-03-13 09:58] LABS: % Iron Saturation 12.7 % (18-50)
[2018-03-13 10:31] LABS: Folate 9.7 NG/ML (5.4-24.0); Vitamin B12 326 PG/ML (211-911)
[2018-03-13 10:33] LABS: Folate 11.8 NG/ML (5.4-24.0)
[2018-03-13 11:23] LABS: Sedimentation Rate-Westergren 35 MM/HR (0-30)
[2018-03-13] MEDS ORDERED: cloNIDine 0.1 MG TABLET PO PRN (12:01)
[2018-03-13] MEDS ORDERED: DIAZEPAM 5 MG TABLET PO ONE (13:11)
[2018-03-13] MEDS ORDERED: POTASSIUM CHLORIDE RIDER 10 MEQ in PREMIX 1 EACH IV PRN (13:11)
[2018-03-13] MEDS ORDERED: diphenhydrAMINE CAP 25 MG CAPSULE PO ONE (13:11)
[2018-03-13] MEDS ORDERED: DIAZEPAM 5 MG TABLET ONE (13:18)
[2018-03-13] MEDS ORDERED: diphenhydrAMINE CAP 50 MG CAPSULE ONE (13:18)
[2018-03-13] MEDS ORDERED: ASPIRIN CHEW 81 MG TABLET PO ONE (13:28)
[2018-03-13] MEDS ORDERED: SODIUM CHLORIDE 0.45% 1,000 ML IV SCH (13:30)
[2018-03-13] MEDS ORDERED: MIDAZOLAM 2 MG/2 ML VIAL ONE (13:47)
[2018-03-13] MEDS ORDERED: LIDOCAINE 1% 20 ML VIAL ONE (13:47)
[2018-03-13] MEDS ORDERED: fentaNYL 100 MCG/2 ML VIAL ONE (13:47)
[2018-03-13] MEDS ORDERED: HEPARIN 5,000 UNIT/1 ML VIAL ONE (14:03)
[2018-03-13] MEDS ORDERED: ONDANSETRON 4 MG/2 ML VIAL IV PRN (15:43)
[2018-03-13] MEDS: ACETAMINOPHEN 325 MG TABLET PO SCH ×2 (16:12→21:22)
[2018-03-13] MEDS: GABAPENTIN 100 MG CAPSULE PO SCH ×2 (16:13→21:23)
[2018-03-13] MEDS: ALBUTEROL/IPRATROPIUM 3 ML NEB RESP TX SCH ×2 (19:57→23:56)
[2018-03-13] MEDS: NITROFURANTOIN MACRO/MONO 100 MG CAPSULE PO SCH (21:20)
[2018-03-13] MEDS: ESTRADIOL 1 MG TABLET PO SCH (21:22)
[2018-03-13] MEDS: MAGNESIUM OXIDE 400 MG TABLET PO SCH (21:22)
[2018-03-13] MEDS: LISINOPRIL/HCTZ 10-12.5 MG TABLET PO SCH (21:22)
[2018-03-13] MEDS: MAGNESIUM CHLORIDE 64 MG TABLET PO SCH (21:22)
[2018-03-13] MEDS: ASPIRIN EC 81 MG TABLET PO SCH (21:22)
[2018-03-14] MEDS: ALBUTEROL/IPRATROPIUM 3 ML NEB RESP TX SCH ×4 (04:04→14:31)
[2018-03-14 05:37] LABS: Basophils % 0.2 % (0.0-0.8); Eosinophils # 0.1 10*3/uL (0.0-0.87); Hematocrit 31.1 VOL% (35.7-47.0); Hemoglobin 9.6 GM/DL (12.0-16.0); Immature Granulocytes % 0.5 %; Immature Granulocytes Absolute 0.03 #; Lymphocytes # 1.3 10*3/uL (1.4-4.0); Mean Corpuscular HGB Conc 30.9 GM/DL (32-36); Mean Corpuscular Hemoglobin 26 PG (27-34); Mean Corpuscular Volume 84.7 FL (87-102); Mean Platelet Volume 11.5 FL (9.6-12.0); Monocytes # 0.5 10*3/uL (0.11-0.8); Monocytes % 7.7 % (1.7-12.7); Neutrophils # 4.1 10*3/uL (1.4-7.4); Neutrophils % 68.6 % (38.7-73.9); Platelet Count 125 T/CUMM (130-400); Red Blood Count 3.67 MC/CUMM (3.8-5.5); Red Cell Distribution Width 14.7 % (9.3-17.3)
[2018-03-14 05:59] LABS: Calcium 8.5 MG/DL (8.5-10.1); Osmolality,Calculated 283.3 MOS/KG (273-304); Potassium 3.7 MMOL/L (3.5-5.1)
[2018-03-14 06:03] LABS: Risk Ratio 2.42; VLDL CHOLESTEROL 11.8 MG/DL
[2018-03-14] MEDS ORDERED: FUROSEMIDE 40 MG/4 ML VIAL IV SCH (09:00)
[2018-03-14] MEDS: NITROFURANTOIN MACRO/MONO 100 MG CAPSULE PO SCH (09:10)
[2018-03-14] MEDS: GABAPENTIN 100 MG CAPSULE PO SCH ×2 (09:10→15:06)
[2018-03-14] MEDS: PANTOPRAZOLE 40 MG TABLET PO SCH (09:10)
[2018-03-14] MEDS: MAGNESIUM OXIDE 400 MG TABLET PO SCH (09:10)
[2018-03-14] MEDS: METOPROLOL TARTRATE 25 MG TABLET PO SCH (09:11)
[2018-03-14] MEDS: MAGNESIUM CHLORIDE 64 MG TABLET PO SCH (09:11)
[2018-03-14] MEDS: ACETAMINOPHEN 325 MG TABLET PO SCH (09:41)
[2018-03-14 16:47] VITALS: BP 145/66
[2018-03-16 09:03] LABS: Hemoglobin A1 (Alkaline) 97.9 % (96.5-98.5); Hemoglobin A2 (Alkaline) 2.1 % (1.5-3.5)
== END 2018-03-14 17:16 | disposition home or self-care (01) ==
LOC: N.EDINP 10:35 → N.ED 10:35 → N.2W 15:29 → N.TELES 18:22
PROVIDERS: ADMIT Family Medicine; ATTEND Family Medicine
PROC: CLCCHCL (ICD-10-PCS; 2018-03-13 14:15)

== ENCOUNTER 2019-11-08 13:58 | Observation (INO) ==
[2019-11-08 17:22] LABS: Basophils % 0.2 % (0.0-0.8); Eosinophils # 0.2 10*3/uL (0.0-0.87); Eosinophils % 3.2 % (0.00-10.9); Hematocrit 38.3 VOL% (35.7-47.0); Immature Granulocytes % 0.3 %; Immature Granulocytes Absolute 0.02 #; Lymphocytes # 1.4 10*3/uL (1.4-4.0); Lymphocytes % 22.6 % (21.3-54.2); Mean Corpuscular HGB Conc 31.3 GM/DL (32-36); Mean Corpuscular Volume 88.7 FL (87-102); Mean Platelet Volume 11.3 FL (9.6-12.0); Monocytes % 7.9 % (1.7-12.7); Neutrophils % 65.8 % (38.7-73.9); Platelet Count 174 T/CUMM (130-400); Red Blood Count 4.32 MC/CUMM (3.8-5.5); Red Cell Distribution Width 16.6 % (9.3-17.3); White Blood Count 6.2 T/CUMM (4-12)
[2019-11-08 17:45] LABS: PT Patient Result 10.8 SECS (9.8-11.9)
[2019-11-08 17:53] LABS: Albumin 3.4 G/DL (3.4-5.0); Bilirubin,Total 0.4 MG/DL (0.2-1.0); Calcium 9.5 MG/DL (8.5-10.1); Osmolality,Calculated 281.5 MOS/KG (273-304)
[2019-11-08] MEDS ORDERED: GLUCAGON 1 MG VIAL IM PRN (19:07)
[2019-11-08] MEDS ORDERED: DEXTROSE 50% 25 GM/50 ML VIAL IV PRN (19:07)
[2019-11-08] MEDS ORDERED: ONDANSETRON 4 MG/2 ML VIAL IV PRN (19:07)
[2019-11-08] MEDS ORDERED: MORPHINE 4 MG/1 ML VIAL IV PRN (19:07)
[2019-11-08] MEDS ORDERED: ACETAMINOPHEN 325 MG TABLET PO PRN (19:07)
[2019-11-08] MEDS ORDERED: cloNIDine 0.1 MG TABLET PO PRN (19:12)
[2019-11-08] MEDS ORDERED: ALUM/MAG/SIMETH/LIDO VISC 1:1 30 ML BOTTLE PO STA (19:15)
[2019-11-08] MEDS ORDERED: NITROGLYCERIN SL 0.4 MG TABLET SL PRN (19:15)
[2019-11-08] MEDS ORDERED: ENOXAPARIN 40 MG/0.4 ML SYRINGE SUBCUT SCH (21:00)
[2019-11-08] MEDS: ASPIRIN EC 81 MG TABLET PO SCH (21:09)
[2019-11-08] MEDS: METOPROLOL TARTRATE 25 MG TABLET PO SCH (21:10)
[2019-11-08 23:16] LABS: Troponin I < 0.015 NG/ML (0.00-0.045)
[2019-11-09] MEDS: LISINOPRIL/HCTZ 10-12.5 MG TABLET PO SCH ×2 (00:16→09:14)
[2019-11-09] MEDS: DICYCLOMINE 10 MG CAPSULE PO SCH ×5 (00:16→20:56)
[2019-11-09] MEDS ORDERED: METOPROLOL TARTRATE 5 MG/5 ML VIAL IV ONE ×3 (04:08→04:36)
[2019-11-09] MEDS: dilTIAZem Drip 125 MG/125 ML PREMIX IV SCH (05:28)
[2019-11-09 06:01] LABS: Basophils % 0.2 % (0.0-0.8); Eosinophils # 0.1 10*3/uL (0.0-0.87); Hematocrit 37.1 VOL% (35.7-47.0); Hemoglobin 11.6 GM/DL (12.0-16.0); Immature Granulocytes % 0.5 %; Immature Granulocytes Absolute 0.03 #; Lymphocytes # 1.5 10*3/uL (1.4-4.0); Lymphocytes % 25.8 % (21.3-54.2); Mean Corpuscular HGB Conc 31.3 GM/DL (32-36); Mean Corpuscular Volume 89.2 FL (87-102); Mean Platelet Volume 11.4 FL (9.6-12.0); Monocytes % 9.4 % (1.7-12.7); Neutrophils % 62.1 % (38.7-73.9); Platelet Count 145 T/CUMM (130-400); Red Blood Count 4.16 MC/CUMM (3.8-5.5); Red Cell Distribution Width 16.6 % (9.3-17.3)
[2019-11-09 06:22] LABS: Osmolality,Calculated 283.3 MOS/KG (273-304); Risk Ratio 1.95; Total Protein 6.5 G/DL (6.4-8.3)
[2019-11-09 06:27] LABS: Troponin I < 0.015 NG/ML (0.00-0.045)
[2019-11-09] MEDS ORDERED: NON-FORMULARY MEDICATION (Omeprazole 20 MG) PO SCH (09:00)
[2019-11-09] MEDS: METOPROLOL TARTRATE 25 MG TABLET PO SCH ×2 (09:14→20:56)
[2019-11-09] MEDS: PANTOPRAZOLE 40 MG TABLET PO SCH (09:14)
[2019-11-09] MEDS: ATORVASTATIN 10 MG TABLET PO SCH (09:14)
[2019-11-09] MEDS: FERROUS SULFATE 325 MG TABLET PO SCH (09:14)
[2019-11-09] MEDS: APIXABAN 5 MG TABLET PO SCH ×2 (09:14→20:56)
[2019-11-09] MEDS: POTASSIUM CHLORIDE 20 MEQ TABLET PO PRN ×2 (09:14→10:44)
[2019-11-09] MEDS ORDERED: DILTIAZEM 60 MG TABLET PO ONE (11:02)
[2019-11-09] MEDS: DILTIAZEM 30 MG TABLET PO SCH ×2 (14:41→20:57)
[2019-11-09] MEDS: ASCORBIC ACID 500 MG TABLET PO SCH (20:56)
[2019-11-09] MEDS: ASPIRIN EC 81 MG TABLET PO SCH (20:56)
[2019-11-10 04:46] LABS: Apearance,Urine Slightly Hazy (Clear); Bacteria,Urine Many /HPF (Few); Bilirubin,Urine Negative (Negative); Blood, Urine Negative (Negative); Glucose,Urine (UA) Negative (Negative); Ketones,Urine Negative (Negative); Mucus,Urine Occasional /LPF (Occasional); Nitrite,Urine Negative (Negative); Protein,Urine Negative; RBC,Urine 1 /HPF (0-4); Squamous Epithelial Cell,Urine Occasional /HPF (0-10); Urine Color Yellow (Yellow); Urine Specific Gravity 1.023 (1.001-1.035); Urine Urobilinogen < 2.0 EU/DL (0.2-1.0); WBC,Urine 3 /HPF (0-6)
[2019-11-10 04:57] LABS: Basophils % 0.2 % (0.0-0.8); Eosinophils # 0.2 10*3/uL (0.0-0.87); Eosinophils % 2.9 % (0.00-10.9); Hematocrit 34.4 VOL% (35.7-47.0); Hemoglobin 10.8 GM/DL (12.0-16.0); Immature Granulocytes % 0.2 %; Immature Granulocytes Absolute 0.01 #; Lymphocytes % 34.8 % (21.3-54.2); Mean Corpuscular HGB Conc 31.4 GM/DL (32-36); Mean Corpuscular Volume 87.8 FL (87-102); Mean Platelet Volume 11.1 FL (9.6-12.0); Neutrophils % 53.9 % (38.7-73.9); Platelet Count 125 T/CUMM (130-400); Red Blood Count 3.92 MC/CUMM (3.8-5.5); Red Cell Distribution Width 16.6 % (9.3-17.3); White Blood Count 5.6 T/CUMM (4-12)
[2019-11-10 05:20] LABS: Hypochromasia Slight; Platelet Estimate Adequate
[2019-11-10 05:39] LABS: Calcium 8.6 MG/DL (8.5-10.1); Osmolality,Calculated 283.4 MOS/KG (273-304)
[2019-11-10] MEDS: dilTIAZem Drip 125 MG/125 ML PREMIX IV SCH (06:33)
[2019-11-10] MEDS ORDERED: DILTIAZEM CD 120 MG CAPSULE PO SCH (09:00)
[2019-11-10] MEDS: DICYCLOMINE 10 MG CAPSULE PO SCH ×2 (09:36→12:11)
[2019-11-10] MEDS: FERROUS SULFATE 325 MG TABLET PO SCH (09:38)
[2019-11-10] MEDS: ATORVASTATIN 10 MG TABLET PO SCH (09:38)
[2019-11-10] MEDS: APIXABAN 5 MG TABLET PO SCH (09:38)
[2019-11-10] MEDS: PANTOPRAZOLE 40 MG TABLET PO SCH (09:39)
[2019-11-10] MEDS: LISINOPRIL/HCTZ 10-12.5 MG TABLET PO SCH (09:39)
[2019-11-10] MEDS: METOPROLOL TARTRATE 25 MG TABLET PO SCH (09:39)
[2019-11-10] MEDS: ASCORBIC ACID 500 MG TABLET PO SCH (09:39)
[2019-11-10 11:50] VITALS: BP 133/65
== END 2019-11-10 15:37 | disposition home or self-care (01) ==
LOC: N.EDINP 13:58 → N.ED 13:58 → N.TELEN 21:58
PROVIDERS: ADMIT Internal Medicine; ATTEND Internal Medicine

== ENCOUNTER 2020-07-10 05:41 | Inpatient (IN) ==
[2020-07-04 15:39] LABS: Basophils % 0.1 % (0.0-0.8); Eosinophils # 0.1 10*3/uL (0.0-0.87); Hematocrit 38.5 VOL% (35.7-47.0); Immature Granulocytes % 0.4 %; Immature Granulocytes Absolute 0.03 #; Lymphocytes # 1.5 10*3/uL (1.4-4.0); Lymphocytes % 21.4 % (21.3-54.2); Mean Corpuscular HGB Conc 31.2 GM/DL (32-36); Mean Corpuscular Volume 92.1 FL (87-102); Mean Platelet Volume 11.2 FL (9.6-12.0); Monocytes % 8.5 % (1.7-12.7); Neutrophils % 67.6 % (38.7-73.9); Platelet Count 169 T/CUMM (130-400); Red Blood Count 4.18 MC/CUMM (3.8-5.5); Red Cell Distribution Width 13.1 % (9.3-17.3); White Blood Count 6.9 T/CUMM (4-12)
[2020-07-04 15:47] LABS: Calcium 8.6 MG/DL (8.5-10.1); Osmolality,Calculated 282.4 MOS/KG (273-304); Potassium 4.3 MMOL/L (3.5-5.1)
[2020-07-04 15:59] LABS: INR 1.8; PT Patient Result 18.5 SECS (9.8-11.9); Partial Thromboplastin Time 30.9 SECS (23.9-33.8)
[2020-07-05 13:48] LABS: Alanine Aminotransferase 24 U/L (13-56); Albumin 3.2 G/DL (3.4-5.0); Alkaline Phosphatase 85 U/L (45-117); Aspartate Amino Transferase 16 U/L (0-37); Bilirubin,Total < 0.39 MG/DL (0.2-1.0); Blood Urea Nitrogen 20 MG/DL (7-18); Calcium 8.6 MG/DL (8.5-10.1); Carbon Dioxide 28 MMOL/L (21-32); Estimated Glom Filtration Rate 45 ML/MIN; Glucose 108 MG/DL (74-106); Osmolality,Calculated 278.7 MOS/KG (273-304); Potassium 4.3 MMOL/L (3.5-5.1); Sodium 138 MMOL/L (136-145); Total Protein 6.7 G/DL (6.4-8.2)
[2020-07-05 14:10] LABS: Bacteria,Urine Many /HPF (Few); Bilirubin,Urine Negative (Negative); Blood, Urine Negative (Negative); Glucose,Urine (UA) Negative (Negative); Hyaline Casts,Urine 57 /LPF (0-3); Ketones,Urine Negative (Negative); Mucus,Urine Occasional /LPF (Occasional); Nitrite,Urine Negative (Negative); Protein,Urine Negative; Squamous Epithelial Cell,Urine Many /HPF (0-10); Urine Appearance CLOUDY (Clear); Urine Color Yellow (Yellow); Urine Specific Gravity 1.017 (1.001-1.035); Urine Urobilinogen < 2.0 EU/DL (0.2-1.0)
[2020-07-10] MEDS ORDERED: CLINDAMYCIN INJ 900 MG in PREMIX 1 EACH IV ONE (06:00)
[2020-07-10] MEDS ORDERED: VANCOMYCIN INJ 1,000 MG in SODIUM CHLORIDE 0.9% 250 ML IV ONE (06:00)
[2020-07-10] MEDS ORDERED: FAMOTIDINE 20 MG TABLET PO STA (06:20)
[2020-07-10] MEDS ORDERED: ACETAMINOPHEN 500 MG TABLET PO STA (06:20)
[2020-07-10] MEDS ORDERED: GABAPENTIN 400 MG CAPSULE PO STA (06:20)
[2020-07-10] MEDS ORDERED: BUPIVACAINE SPINAL 0.75% 2 ML AMP SPINAL ONE (06:21)
[2020-07-10] MEDS ORDERED: MIDAZOLAM 2 MG/2 ML VIAL ONE (06:21)
[2020-07-10] MEDS ORDERED: fentaNYL 100 MCG/2 ML VIAL ONE ×2 (06:21→07:43)
[2020-07-10] MEDS ORDERED: NEOSTIGMINE 10 MG/10 ML VIAL ONE (06:21)
[2020-07-10] MEDS ORDERED: propofoL 200 MG/20 ML VIAL IV ONE (06:21)
[2020-07-10] MEDS ORDERED: ONDANSETRON 4 MG/2 ML VIAL ONE (06:21)
[2020-07-10] MEDS ORDERED: LIDOCAINE 2% 5 ML VIAL ONE (06:21)
[2020-07-10] MEDS ORDERED: TRANEXAMIC ACID 1,000 MG/10 ML VIAL ONE (06:23)
[2020-07-10] MEDS ORDERED: DEXAMETHASONE 4 MG/1 ML VIAL ONE (06:30)
[2020-07-10] MEDS ORDERED: LACTATED RINGERS 1,000 ML IV SCH (06:30)
[2020-07-10] MEDS ORDERED: ROPIVACAINE 0.5% 30 ML VIAL ONE (06:30)
[2020-07-10] MEDS ORDERED: LIDOCAINE 1% 5 ML VIAL ONE (06:30)
[2020-07-10 06:34] LABS: INR 1.2; PT Patient Result 13.5 SECS (9.8-11.9); Partial Thromboplastin Time 26.2 SECS (23.9-33.8)
[2020-07-10] MEDS ORDERED: MEPERIDINE 25 MG/1 ML VIAL IV PRN (08:46)
[2020-07-10] MEDS ORDERED: diphenhydrAMINE 50 MG/1 ML VIAL IV PRN (08:46)
[2020-07-10] MEDS ORDERED: ONDANSETRON 4 MG/2 ML VIAL IV PRN ×2 (08:46→09:08)
[2020-07-10] MEDS ORDERED: PROMETHAZINE INJ 25 MG in SODIUM CHLORIDE 0.9% 50 ML IV PRN (08:46)
[2020-07-10] MEDS: HYDROmorphone 2 MG/1 ML VIAL IV PRN ×5 (09:00→23:07)
[2020-07-10] MEDS ORDERED: diphenhydrAMINE CAP 25 MG CAPSULE PO PRN (09:08)
[2020-07-10] MEDS ORDERED: TEMAZEPAM 7.5 MG CAPSULE PO PRN (09:08)
[2020-07-10] MEDS ORDERED: BISACODYL 10 MG SUPP RECTAL PRN (09:08)
[2020-07-10] MEDS ORDERED: MAGNESIUM HYDROXIDE SUSP 30 ML UDCUP PO PRN (09:08)
[2020-07-10] MEDS ORDERED: PROMETHAZINE 25 MG/1 ML VIAL IM PRN (09:08)
[2020-07-10] MEDS ORDERED: LACTULOSE 20 GM/30 ML UDCUP PO PRN (09:08)
[2020-07-10] MEDS ORDERED: DICYCLOMINE 10 MG CAPSULE PO PRN (09:11)
[2020-07-10] MEDS ORDERED: amLODIPine 2.5 MG TABLET PO PRN (09:11)
[2020-07-10] MEDS ORDERED: HYDROmorphone 2 MG/1 ML VIAL IV PRN (09:46)
[2020-07-10] MEDS: CLINDAMYCIN INJ 900 MG in PREMIX 1 EACH IV SCH ×2 (15:45→22:58)
[2020-07-10] MEDS: WARFARIN 2.5 MG TABLET PO SCH (18:40)
[2020-07-10] MEDS: DOCUSATE SODIUM 100 MG CAPSULE PO SCH (21:46)
[2020-07-10] MEDS: PANTOPRAZOLE 40 MG TABLET PO SCH (21:46)
[2020-07-10] MEDS: METOPROLOL TARTRATE 25 MG TABLET PO SCH (23:03)
[2020-07-11 05:35] LABS: Basophils % 0.1 % (0.0-0.8); Hematocrit 32.3 VOL% (35.7-47.0); Hemoglobin 10.6 GM/DL (12.0-16.0); Immature Granulocytes % 0.6 %; Immature Granulocytes Absolute 0.07 #; Lymphocytes # 0.7 10*3/uL (1.4-4.0); Lymphocytes % 5.6 % (21.3-54.2); Mean Corpuscular HGB Conc 32.8 GM/DL (32-36); Mean Corpuscular Volume 90.7 FL (87-102); Mean Platelet Volume 10.7 FL (9.6-12.0); Monocytes % 7.2 % (1.7-12.7); Neutrophils % 86.5 % (38.7-73.9); Platelet Count 142 T/CUMM (130-400); Red Blood Count 3.56 MC/CUMM (3.8-5.5); Red Cell Distribution Width 13.3 % (9.3-17.3); White Blood Count 12.1 T/CUMM (4-12)
[2020-07-11 05:40] LABS: INR 1.2; PT Patient Result 13.6 SECS (9.8-11.9)
[2020-07-11 07:35] LABS: Osmolality,Calculated 275.2 MOS/KG (273-304); Potassium 4.4 MMOL/L (3.5-5.1)
[2020-07-11] MEDS: ATORVASTATIN 10 MG TABLET PO SCH ×3 (09:00→21:05)
[2020-07-11] MEDS: DILTIAZEM CD 120 MG CAPSULE PO SCH (09:16)
[2020-07-11] MEDS: COENZYME Q10 100 MG CAPSULE PO SCH (09:17)
[2020-07-11] MEDS: DOCUSATE SODIUM 100 MG CAPSULE PO SCH ×2 (09:17→21:05)
[2020-07-11] MEDS: ESTRADIOL 2 MG TABLET PO SCH (09:17)
[2020-07-11] MEDS: METOPROLOL TARTRATE 25 MG TABLET PO SCH ×2 (09:17→21:05)
[2020-07-11] MEDS: ASCORBIC ACID 500 MG TABLET PO SCH (09:18)
[2020-07-11] MEDS: PANTOPRAZOLE 40 MG TABLET PO SCH ×2 (09:18→21:05)
[2020-07-11] MEDS: LISINOPRIL/HCTZ 20-12.5 MG TABLET PO SCH ×2 (09:18→09:33)
[2020-07-11] MEDS ORDERED: MAGNESIUM SULF INJ 3 GM in SODIUM CHLORIDE 0.9% 100 ML IV ONE (14:00)
[2020-07-11] MEDS: WARFARIN 2.5 MG TABLET PO SCH (17:50)
[2020-07-12] MEDS: HYDROmorphone 2 MG/1 ML VIAL IV PRN ×2 (01:01→07:32)
[2020-07-12] MEDS ORDERED: TUBERCULIN SKIN TEST 0.1 ML SYRINGE INTRADERM ONE (08:10)
[2020-07-12] MEDS: ASCORBIC ACID 500 MG TABLET PO SCH (09:42)
[2020-07-12] MEDS: DILTIAZEM CD 120 MG CAPSULE PO SCH (09:43)
[2020-07-12] MEDS: COENZYME Q10 100 MG CAPSULE PO SCH (09:43)
[2020-07-12] MEDS: METOPROLOL TARTRATE 25 MG TABLET PO SCH ×2 (09:43→20:36)
[2020-07-12] MEDS: DOCUSATE SODIUM 100 MG CAPSULE PO SCH ×2 (09:43→20:36)
[2020-07-12] MEDS: ESTRADIOL 2 MG TABLET PO SCH (09:43)
[2020-07-12] MEDS: LISINOPRIL/HCTZ 20-12.5 MG TABLET PO SCH (09:43)
[2020-07-12] MEDS: PANTOPRAZOLE 40 MG TABLET PO SCH ×2 (09:43→20:36)
[2020-07-12] MEDS: WARFARIN 2.5 MG TABLET PO SCH (17:36)
[2020-07-12] MEDS: ATORVASTATIN 10 MG TABLET PO SCH (20:36)
[2020-07-13 05:33] LABS: INR 1.3
[2020-07-13 07:09] VITALS: BP 120/65
[2020-07-13] MEDS: COENZYME Q10 100 MG CAPSULE PO SCH (09:45)
[2020-07-13] MEDS: ESTRADIOL 2 MG TABLET PO SCH (09:45)
[2020-07-13] MEDS: ASCORBIC ACID 500 MG TABLET PO SCH (09:45)
[2020-07-13] MEDS: DOCUSATE SODIUM 100 MG CAPSULE PO SCH (09:46)
[2020-07-13] MEDS: METOPROLOL TARTRATE 25 MG TABLET PO SCH (09:46)
[2020-07-13] MEDS: DILTIAZEM CD 120 MG CAPSULE PO SCH (09:46)
[2020-07-13] MEDS: PANTOPRAZOLE 40 MG TABLET PO SCH (09:46)
[2020-07-13] MEDS: LISINOPRIL/HCTZ 20-12.5 MG TABLET PO SCH (09:48)
[2020-07-13] MEDS ORDERED: WARFARIN 2.5 MG TABLET PO SCH (18:00)
== END 2020-07-13 11:11 | disposition swing bed (61) | DRG 470 ==
LOC: N.OR 05:41 → N.SDSINP 05:46 → N.3E 09:08
PROVIDERS: ADMIT Orthopaedic Surgery; ATTEND Orthopaedic Surgery